=== PATIENT | female | born 1950 | race Caucasian/White ===

== ENCOUNTER 2018-04-06 22:06 | Observation (INO) ==
[2018-04-06] MEDS ORDERED: Albuterol 2.5 MG/3 ML NEBULIZER IH ONE ×2 (22:13→23:20)
[2018-04-06] MEDS ORDERED: Ipratropium/Albuterol Neb 3 ML IH ONE (22:13)
--- NOTE | 2018-04-06 22:26 | Emergency Department Note ---
Disposition Clinical Impression: Acute exacerbation of chronic obstructive airways disease, Acute hyponatremia Disposition: Admitted As Inpatient Condition: Fair Referrals: James Ashby CNP [Primary Care Provider] - Forms: ED Satisfaction Letter Time of Disposition: 23:33 SOB HPI - General Chief Complaint: ED Shortness of Breath/Dyspnea Stated Complaint: sob Time Seen by Provider: 04/06/18 22:12 Source: patient, EMS Mode of arrival: EMS Limitations: no limitations Nursing Notes Reviewed: Yes Vital Signs Reviewed: Yes - History of Present Illness 67-year-old female who presents today with known history of COPD on amoxicillin from her primary care physician. She is also taking Mucinex. She states she stopped her inhaler a few days ago because she was not clear if she could take her inhaler and the amoxicillin at the same time. She did not call her. Primary care to ask this question. Patient states that she does not wear oxygen at home. She arrives by EMS and is 89% on room air. By EMS she received 1 DuoNeb and Solu-Medrol. She states after the Solu-Medrol and DuoNeb she is feeling somewhat better. She had a nonproductive cough though she says she has been trying hard to cough it out. She states she has felt warm at home. - Related Data Home Medications Medication Instructions Recorded Confirmed Amlodipine [Norvasc] 5 mg PO DAILY 01/08/15 04/06/18 Aspirin 81 mg PO DAILY 01/08/15 04/06/18 Buspirone [Buspar] 15 mg PO TID 01/08/15 04/06/18 Cholecalciferol (Vitamin D3) 2,000 unit PO DAILY 01/08/15 04/06/18 [Vitamin D] CloNIDine HCl 0.1 mg PO TID 01/08/15 04/06/18 Cyanocobalamin (B-12) [Vitamin B12] 1,000 mcg IM PRN PRN 01/08/15 04/06/18 Denosumab [Prolia] 60 mg SQ [id number] 01/08/15 04/06/18 Ezetimibe [Zetia] 10 mg PO DAILY 01/08/15 04/06/18 LORazepam [Ativan] 0.5 mg PO TID 01/08/15 04/06/18 Loratadine [Claritin] 10 mg PO DAILY 01/08/15 04/06/18 Metoprolol [Lopressor] 50 mg PO BID 01/08/15 04/06/18 Mirtazapine [Remeron] 15 mg PO DAILY 01/08/15 04/06/18 Nitroglycerin 0.4 mg SL Q5MIN 01/08/15 04/06/18 Omeprazole [PriLOSEC] 20 mg PO DAILY 01/08/15 04/06/18 Simvastatin [Zocor] 0.5 tab PO HS 01/08/15 04/06/18 Albuterol Sulfate [Proair Hfa] 2 puff IH Q4H PRN 04/06/18 04/06/18 Amoxicillin [Amoxil] 500 mg PO TID 04/06/18 04/06/18 Guaifenesin [Mucinex] 600 mg PO BID 04/06/18 04/06/18 Levothyroxine [Synthroid] 50 mcg PO 0630 04/06/18 04/06/18 Allergies Allergy/AdvReac Type Severity Reaction Status Date / Time Benzoate Analogues Allergy See Verified 04/06/18 22:28 Comments chondroitin sulfate A Allergy See Verified 04/06/18 22:28 [From TripleFlex] Comments Diphenoxylate Allergy See Verified 04/06/18 22:28 Comments glatiramer (copolymer 1) Allergy See Verified 04/06/18 22:28 [From Copaxone] Comments glucosamine [From TripleFlex] Allergy See Verified 04/06/18 22:28 Comments levofloxacin Allergy See Verified 04/06/18 22:28 Comments methylsulfonylmethane Allergy See Verified 04/06/18 22:28 [From TripleFlex] Comments metronidazole Allergy See Verified 04/06/18 22:28 Comments nitrofurantoin Allergy See Verified 04/06/18 22:28 Comments ondansetron Allergy See Verified 04/06/18 22:28 Comments paricalcitol [From Zemplar] Allergy See Verified 04/06/18 22:28 Comments Sulfa (Sulfonamide Allergy Nausea Verified 04/06/18 22:28 Antibiotics) trazodone Allergy See Verified 04/06/18 22:28 Comments cinacalcet [From Sensipar] AdvReac See Verified 04/06/18 22:29 Comments codeine AdvReac Nausea Verified 04/06/18 22:28 NSAIDS (Non-Steroidal AdvReac Gastrointestinal Verified 04/06/18 22:28 Anti-Inflamma Upset Review of Systems: All other systems are negative except as noted/marked Chart generated with voice recognition software Nursing notes reviewed Old records reviewed Past Medical History - Past Medical History Attestation: Yes The following information was validated with the patient. Source: patient, old records reviewed, nursing notes reviewed Medical history: Reports: COPD, GERD, hyperlipidemia, hypertension, osteoporosis, renal disease, thyroid disease, other Surgical history: Reports: hysterectomy, other Psychiatric history: Reports: anxiety, depression BIT GATHERER history: Reports: no BIT GATHERER history - Social History Smoking Status: Current every day smoker Smokeless Tobacco Status: No Alcohol use: Reports: none Drug use: Reports: none Physical Exam - General Limitations: no limitations General appearance: alert - Head Head exam: atraumatic, normocephalic, normal inspection - Eye Eye exam: Present: normal appearance, PERRL, EOMI - ENT ENT exam: normal exam, normal oropharynx, mucous membranes moist, normal external ear exam - Neck Neck exam: Present: normal inspection, full ROM, trachea midline - Chest Chest inspection: Present: normal inspection, symmetric chest wall rise - Respiratory Respiratory exam: Present: wheezes, other (Diminished lung sounds bilaterally with exhalation wheezes) - Cardiovascular Cardiovascular exam: Present: regular rate, normal rhythm, normal heart sounds - Abdominal Exam Abdominal exam: Present: soft, Non-Tender, normal bowel sounds - Extremities Exam Extremities exam: Present: normal inspection, full ROM, normal capillary refill. Absent: tenderness, pedal edema, joint swelling, calf tenderness - Back Exam Back exam: Present: normal inspection, full ROM. Absent: tenderness - Neurological Exam Neurological exam: Present: alert, oriented X3, CN II-XII intact - Psychiatric Psychiatric exam: Present: normal affect, normal mood - Skin Skin exam: Present: warm, dry, intact, normal color. Absent: cyanosis, diaphoresis Course Vital Signs Temperature 98.6 F 04/06/18 22:17 Pulse Rate 85 04/06/18 22:17 Respiratory Rate 16 04/06/18 22:17 Blood Pressure 100/65 04/06/18 22:17 O2 Sat by Pulse Oximetry 90 04/06/18 22:17 Temperature 98.6 F 04/06/18 22:17 Pulse Rate 93 04/06/18 23:24 Respiratory Rate 16 04/06/18 23:24 Blood Pressure 119/61 04/06/18 23:24 O2 Sat by Pulse Oximetry 90 04/06/18 23:24 Oxygen Delivery Oxygen Delivery Nasal Cannula Shortness of Breath/Dyspnea - MDM Narrative Medical decision making narrative: 67-year-old female who presents today acute exacerbation of COPD. She has not been using her inhaler for days. Her ABG does not look terrible she looks slightly hypoxic. She was placed on oxygen when she got here because her room air sats were 89% and she does not wear oxygen at home. After the DuoNeb from EMS a DuoNeb from us and an albuterol from us, she is satting anywhere from 89- 92% on 2 L. She is at 92% at rest 89% when she is talking. I am not happy with that are satisfied that she can come off oxygen and go home much to her dismay. I ordered HER-2 more albuterol's here. I also noticed in her labwork that she is hyponatremic today at 123. This is low even for her. Her average sodium is around 128-132. Started some IV fluids for her for gentle replacement of the sodium. Patient understands that her best interest to stay. I have placed a call to the hospitalist for admission 1120pm Dr Kaplan called back, agrees to accept patient. Orders placed by myself. [id number] - Medical Records Medical records reviewed: Yes I reviewed the patient's medical records. - Lab Data Lab results reviewed: Yes I reviewed the patient's lab results. Result diagrams: 04/06/18 22:35 04/06/18 22:35 Lab Results 04/06/18 04/06/18 04/06/18 Range/Units 22:35 22:35 22:35 WBC 8.7 (4.3-11.1) K/mcL RBC 4.24 (3.82-4.97) M/mcL Hgb 13.7 (11.5-15.4) g/dL Hct 38.6 (35.3-44.9) % MCV 91.0 (83.0-100.0) fL MCH 32.3 (28.0-33.3) pg MCHC 35.5 (31.6-35.5) g/dL RDW 14.5 (11.5-14.5) % Plt Count 236 (140-400) K/mcL MPV 8.8 L (9.4-12.4) fL Immature Gran % 0.7 (0-4) % Seg Neutrophils % 54.3 % Lymphocytes % 34.8 % Monocytes % 7.4 % Eosinophils % 2.1 % Basophils % 0.7 % Neutrophils # 4.7 (1.6-8.9) K/mcL Lymphocytes # 3.0 (0.6-4.6) K/mcL Monocytes # 0.7 (0.0-1.3) K/mcL Eosinophils # 0.2 (0.0-0.6) K/mcL Basophils # 0.1 (0.0-0.2) K/mcL ABG pH (7.32-7.45) pH Units ABG pCO2 (35-45) mmHg ABG pO2 (85-104) mmHg ABG HCO3 (21-27) mEq/L ABG Total CO2 (20-26) mEq/L ABG O2 Saturation (95-98) % ABG Base Excess (-2 to 3) mEq/L Sodium 123 L (136-145) mEq/L Potassium 4.6 (3.5-5.1) mEq/L Chloride 93 L (98-107) mEq/L Carbon Dioxide 22 L (23-29) mEq/L BUN 17 (8-23) mg/dL Creatinine 1.27 H (0.60-1.20) mg/dL Est GFR ( Amer) 51 L (> 60) Est GFR (Non-Af Amer) 42 L (> 60) BUN/Creatinine Ratio 13 (6-26) Glucose 132 H (70-105) mg/dL Calculated Osmolality 259 L (280-300) Lactic Acid 1.3 (0.5-2.2) mmol/L Calcium 9.4 (8.6-10.3) mg/dL Magnesium (1.6-2.6) mg/dL 04/06/18 04/06/18 Range/Units 22:35 23:07 WBC (4.3-11.1) K/mcL RBC (3.82-4.97) M/mcL Hgb (11.5-15.4) g/dL Hct (35.3-44.9) % MCV (83.0-100.0) fL MCH (28.0-33.3) pg MCHC (31.6-35.5) g/dL RDW (11.5-14.5) % Plt Count (140-400) K/mcL MPV (9.4-12.4) fL Immature Gran % (0-4) % Seg Neutrophils % % Lymphocytes % % Monocytes % % Eosinophils % % Basophils % % Neutrophils # (1.6-8.9) K/mcL Lymphocytes # (0.6-4.6) K/mcL Monocytes # (0.0-1.3) K/mcL Eosinophils # (0.0-0.6) K/mcL Basophils # (0.0-0.2) K/mcL ABG pH 7.42 (7.32-7.45) pH Units ABG pCO2 39 (35-45) mmHg ABG pO2 69 L (85-104) mmHg ABG HCO3 25 (21-27) mEq/L ABG Total CO2 26 (20-26) mEq/L ABG O2 Saturation 94 L (95-98) % ABG Base Excess 1 (-2 to 3) mEq/L Sodium (136-145) mEq/L Potassium (3.5-5.1) mEq/L Chloride (98-107) mEq/L Carbon Dioxide (23-29) mEq/L BUN (8-23) mg/dL Creatinine (0.60-1.20) mg/dL Est GFR ( Amer) (> 60) Est GFR (Non-Af Amer) (> 60) BUN/Creatinine Ratio (6-26) Glucose (70-105) mg/dL Calculated Osmolality (280-300) Lactic Acid (0.5-2.2) mmol/L Calcium (8.6-10.3) mg/dL Magnesium 1.7 (1.6-2.6) mg/dL - Radiology Data Radiology results reviewed: Yes I reviewed the patient's radiology results. EXAMINATION: SINGLE XRAY VIEW OF THE CHEST 04/06/2018 10:42 pm COMPARISON: 08/27/2015 HISTORY: ORDERING SYSTEM PROVIDED HISTORY: dyspnea FINDINGS: Cardiac and mediastinal contours are unchanged. No new pulmonary opacities. Lungs are hyperinflated, with prominence of interstitial lung markings. No convincing evidence of significant pleural effusions. No evidence of pneumothorax. No evidence of acute osseous abnormalities. XR/XR chest 1V portable IMPRESSION: 1. No radiographic evidence of acute cardiopulmonary process. 2. Findings suggestive of COPD. 3. Unchanged bibasilar pulmonary opacities are most compatible with scarring. This can be further evaluated with nonemergent chest CT as an outpatient, as clinically warranted and if not previously evaluated. D/ / 04/06/2018 22:56:53 Daniel Hogan MD / [facility] Interpreting Provider: Daniel Hogan MD - EKG Data EKG attestation: Yes I reviewed and interpreted this EKG. EKG results narrative: EKG interpreted by myself as a sinus rhythm at a rate of 89 [address] QTC [address] elevation
[2018-04-06 22:47] LABS: Basophils # 0.1 K/mcL (0.0-0.2); Basophils % 0.7 %; Eosinophils # 0.2 K/mcL (0.0-0.6); Eosinophils % 2.1 %; Hematocrit 38.6 % (35.3-44.9); Hemoglobin 13.7 g/dL (11.5-15.4); Immature Granulocytes % 0.7 % (0-4); Lymphocytes % 34.8 %; Mean Corpuscular HGB Conc 35.5 g/dL (31.6-35.5); Mean Corpuscular Hemoglobin 32.3 pg (28.0-33.3); Mean Platelet Volume 8.8 fL (9.4-12.4); Monocytes # 0.7 K/mcL (0.0-1.3); Monocytes % 7.4 %; Neutrophils # 4.7 K/mcL (1.6-8.9); Platelet Count 236 K/mcL (140-400); Red Blood Count 4.24 M/mcL (3.82-4.97); Red Cell Distribution Width 14.5 % (11.5-14.5); Segmented Neutrophils % 54.3 %
[2018-04-06 23:04] LABS: Calcium 9.4 mg/dL (8.6-10.3); Potassium 4.6 mEq/L (3.5-5.1)
[2018-04-06] MEDS ORDERED: 0.9 % Sodium Chloride 1,000 ML IVC ONE (23:08)
[2018-04-06 23:10] LABS: ABG Base Excess 1 mEq/L (-2 to 3); ABG HCO3 25 mEq/L (21-27); ABG Oxygen Saturation 94 % (95-98); ABG PCO2 39 mmHg (35-45); ABG PH 7.42 pH Units (7.32-7.45); ABG PO2 69 mmHg (85-104); ABG TCO2 26 mEq/L (20-26)
[2018-04-06] MEDS ORDERED: Azithromycin 250 MG TABLET PO ONE (23:25)
[2018-04-06] MEDS ORDERED: cefTRIAXone 1,000 MG in Water for inj. (sterile) 20 ML 10 ML IVP ONE (23:25)
[2018-04-07] MEDS ORDERED: Acetaminophen 325 MG TABLET PO PRN (01:00)
[2018-04-07] MEDS ORDERED: Ipratropium/Albuterol Neb 3 ML IH PRN (01:00)
[2018-04-07] MEDS ORDERED: Naloxone 0.4 MG/ML INJ IVP PRN (01:00)
[2018-04-07] MEDS ORDERED: *HR* HYDROcodone/Acet 5/325 mg TABLET PO PRN (01:00)
[2018-04-07] MEDS: Nitroglycerin 0.4 MG TAB.SUBL SL SCH (02:00)
[2018-04-07] MEDS: 0.9 % Sodium Chloride 1,000 ML IVC SCH ×2 (02:03→12:41)
[2018-04-07] MEDS: Albuterol 2.5 MG/3 ML NEBULIZER IH SCH ×6 (05:11→23:52)
[2018-04-07 05:51] LABS: Basophils % 0.2 %; Hematocrit 35.6 % (35.3-44.9); Hemoglobin 12.4 g/dL (11.5-15.4); Immature Granulocytes % 0.9 % (0-4); Lymphocytes # 0.9 K/mcL (0.6-4.6); Lymphocytes % 9.6 %; Mean Corpuscular HGB Conc 34.8 g/dL (31.6-35.5); Mean Corpuscular Hemoglobin 32.3 pg (28.0-33.3); Mean Corpuscular Volume 92.7 fL (83.0-100.0); Mean Platelet Volume 8.5 fL (9.4-12.4); Monocytes # 0.1 K/mcL (0.0-1.3); Monocytes % 0.9 %; Neutrophils # 8.5 K/mcL (1.6-8.9); Platelet Count 217 K/mcL (140-400); Red Blood Count 3.84 M/mcL (3.82-4.97); Red Cell Distribution Width 14.4 % (11.5-14.5); Segmented Neutrophils % 88.4 %
[2018-04-07] MEDS: ZETIA 10MG PO SCH (08:37)
[2018-04-07] MEDS: Mirtazapine 15 MG TABLET PO SCH (08:43)
[2018-04-07 08:44] LABS: Potassium 3.4 mEq/L (3.5-5.1)
[2018-04-07] MEDS: Loratadine 10 MG TABLET PO SCH (08:44)
[2018-04-07] MEDS: *HR* LORazepam 1 MG TABLET PO SCH ×3 (08:44→21:01)
[2018-04-07] MEDS: Aspirin 81 MG TAB.CHEW PO SCH (08:44)
[2018-04-07] MEDS: cloNIDine HCl 0.1 MG TABLET PO SCH ×3 (08:44→21:03)
[2018-04-07] MEDS: amLODIPine 5 MG TABLET PO SCH (08:44)
--- NOTE | 2018-04-07 10:55 | Internal Med History&Physical ---
Date of Encounter: 04/07/18 Time of Encounter: 11:00 Internal Medicine - H&P: HPI Admitted From: Home History of present illness: Ms. Gutierrez is a 67 year old female who complained of SOB ASSESSMENTS AND PLANS (1) acute exacrbation of COPD hypoxia and wheeze in ED now on 2 L NC some medicine noncompliance discussed steroid - solumedrol in ED will change to po prednisone linda carrillo (2) anxiety perhaps made worse by steroid and low sodium will continue home medications and monitor (3) hyponatremia acute on chronic will give IV normal saline recheck lytes may need oral fluid restrict if not improving. may have element of adrenal insuffiency - could be followed also by family doc can check urine electrolytes if not improving. CC: SOB - History of Present Illness 67-year-old female who was admit via ED with acute exacerbation of COPD . She has known history of COPD and did see her PMD> She was placed on amoxicillin from her primary care physician. She at that time did stop her albuterol thinking not to take together. She started to wheeze and have increased sob at rest. IN ED she was found to have sat of 88% on room air. She is not on home O2. She did improve to 92% on 2 L after treatment in ED. She was also found to have low sodium, she has hx of chronic hyponatremia but this was worse at 123. She denies excessive water intake. Scant sputum dry cough. Does smoke at home 14 small cigars per day. Advised to stop Eating is fair. No chest or abd pain does have hx anxiety attacks. - Related Data Home Medications Medication Instructions Recorded Confirmed Amlodipine [Norvasc] 5 mg PO DAILY 01/08/15 04/06/18 Aspirin 81 mg PO DAILY 01/08/15 04/06/18 Buspirone [Buspar] 15 mg PO TID 01/08/15 04/06/18 Cholecalciferol (Vitamin D3) 2,000 unit PO DAILY 01/08/15 04/06/18 [Vitamin D] CloNIDine HCl 0.1 mg PO TID 01/08/15 04/06/18 Cyanocobalamin (B-12) [Vitamin B12] 1,000 mcg IM PRN PRN 01/08/15 04/06/18 Denosumab [Prolia] 60 mg SQ [id number] 01/08/15 04/06/18 Ezetimibe [Zetia] 10 mg PO DAILY 01/08/15 04/06/18 LORazepam [Ativan] 0.5 mg PO TID 01/08/15 04/06/18 Loratadine [Claritin] 10 mg PO DAILY 01/08/15 04/06/18 Metoprolol [Lopressor] 50 mg PO BID 01/08/15 04/06/18 Mirtazapine [Remeron] 15 mg PO DAILY 01/08/15 04/06/18 Nitroglycerin 0.4 mg SL Q5MIN 01/08/15 04/06/18 Omeprazole [PriLOSEC] 20 mg PO DAILY 01/08/15 04/06/18 Simvastatin [Zocor] 0.5 tab PO HS 01/08/15 04/06/18 Albuterol Sulfate [Proair Hfa] 2 puff IH Q4H PRN 04/06/18 04/06/18 Amoxicillin [Amoxil] 500 mg PO TID 04/06/18 04/06/18 Guaifenesin [Mucinex] 600 mg PO BID 04/06/18 04/06/18 Levothyroxine [Synthroid] 50 mcg PO 0630 04/06/18 04/06/18 Allergies Allergy/AdvReac Type Severity Reaction Status Date / Time Benzoate Analogues Allergy See Verified 04/06/18 22:28 Comments chondroitin sulfate A Allergy See Verified 04/06/18 22:28 [From TripleFlex] Comments Diphenoxylate Allergy See Verified 04/06/18 22:28 Comments glatiramer (copolymer 1) Allergy See Verified 04/06/18 22:28 [From Copaxone] Comments glucosamine [From TripleFlex] Allergy See Verified 04/06/18 22:28 Comments levofloxacin Allergy See Verified 04/06/18 22:28 Comments methylsulfonylmethane Allergy See Verified 04/06/18 22:28 [From TripleFlex] Comments metronidazole Allergy See Verified 04/06/18 22:28 Comments nitrofurantoin Allergy See Verified 04/06/18 22:28 Comments ondansetron Allergy See Verified 04/06/18 22:28 Comments paricalcitol [From Zemplar] Allergy See Verified 04/06/18 22:28 Comments Sulfa (Sulfonamide Allergy Nausea Verified 04/06/18 22:28 Antibiotics) trazodone Allergy See Verified 04/06/18 22:28 Comments cinacalcet [From Sensipar] AdvReac See Verified 04/06/18 22:29 Comments codeine AdvReac Nausea Verified 04/06/18 22:28 NSAIDS (Non-Steroidal AdvReac Gastrointestinal Verified 04/06/18 22:28 Anti-Inflamma Upset Review of Systems: All other systems are negative except as noted/marked Past Medical History - Past Medical History Medical history: Reports: COPD, GERD, hyperlipidemia, hypertension, osteoporosis Surgical history: Reports: hysterectomy, other Psychiatric history: Reports: anxiety, depression - Social History Smoking Status: Current every day smoker - cigarello Smokeless Tobacco Status: No Alcohol use: Reports: none Drug use: Reports: none Physical Exam - General Limitations: no limitations General appearance: alert WF slightly obese - Head Head exam: atraumatic, normocephalic, - Eye Eye exam: Present: normal appearance, PERRL, EOMI - ENT ENT exam: normal exam, normal oropharynx, mucous membranes moist, normal external ear exam - Neck Neck exam: Present: normal inspection, full ROM, trachea midline thick neck - Chest Chest inspection: Present: normal inspection, symmetric chest wall rise - Respiratory Respiratory exam: Present: wheezes, other (Diminished lung sounds bilaterally with exhalation wheezes) - Cardiovascular Cardiovascular exam: Present: regular rate, normal rhythm, normal heart sounds - Abdominal Exam Abdominal exam: Present: soft, Non-Tender, normal bowel sounds - Extremities Exam Extremities exam: Present: normal inspection, full ROM, normal capillary refill. Absent: tenderness, pedal edema, joint swelling, calf tenderness - Back Exam Back exam: Present: normal inspection, full ROM. Absent: tenderness - Neurological Exam Neurological exam: Present: alert, oriented X3, CN II-XII intact - Psychiatric Psychiatric exam: Present: normal affect, normal mood - Skin Skin exam: Present: warm, dry, intact, normal color. Absent: cyanosis, diaphoresis Past Med Surg Social Fam HX - Past Medical History Medical history: COPD, GERD, hyperlipidemia, hypertension, osteoporosis, renal disease, thyroid disease, other Additional medical history: MS Psychiatric history: anxiety, depression - Past Surgical History Surgical History: hysterectomy, other Additional surgical history: throat surgery - Social History Smoking Status: Current every day smoker Smokeless Tobacco Status: No Alcohol use: none Drug use: none - Family History Mother Hx Family Cancer: Yes (- Breast CA) Father Hx Family Cancer: Yes (Skin CA) Internal Medicine - H&P: Meds Amlodipine [Norvasc] 5 mg PO DAILY 01/08/15 [History] Aspirin 81 mg PO DAILY 01/08/15 [History] Buspirone [Buspar] 15 mg PO TID 01/08/15 [History] Cholecalciferol (Vitamin D3) [Vitamin D] 2,000 unit PO DAILY 01/08/15 [History] CloNIDine HCl 0.1 mg PO TID 01/08/15 [History] Cyanocobalamin (B-12) [Vitamin B12] 1,000 mcg IM PRN PRN 01/08/15 [History] Denosumab [Prolia] 60 mg SQ [id number] 01/08/15 [History] Ezetimibe [Zetia] 10 mg PO DAILY 01/08/15 [History] LORazepam [Ativan] 0.5 mg PO TID 01/08/15 [History] Loratadine [Claritin] 10 mg PO DAILY 01/08/15 [History] Metoprolol [Lopressor] 50 mg PO BID 01/08/15 [History] Mirtazapine [Remeron] 15 mg PO DAILY 01/08/15 [History] Nitroglycerin 0.4 mg SL Q5MIN 01/08/15 [History] Omeprazole [PriLOSEC] 20 mg PO DAILY 01/08/15 [History] Simvastatin [Zocor] 0.5 tab PO HS 01/08/15 [History] Albuterol Sulfate [Proair Hfa] 2 puff IH Q4H PRN 04/06/18 [History] Amoxicillin [Amoxil] 500 mg PO TID 04/06/18 [History] Guaifenesin [Mucinex] 600 mg PO BID 04/06/18 [History] Levothyroxine [Synthroid] 50 mcg PO 0630 04/06/18 [History] Allergy/AdvReac Type Severity Reaction Status Date / Time Benzoate Analogues Allergy See Verified 04/06/18 22:28 Comments chondroitin sulfate A Allergy See Verified 04/06/18 22:28 [From TripleFlex] Comments Diphenoxylate Allergy See Verified 04/06/18 22:28 Comments glatiramer (copolymer 1) Allergy See Verified 04/06/18 22:28 [From Copaxone] Comments glucosamine [From TripleFlex] Allergy See Verified 04/06/18 22:28 Comments levofloxacin Allergy See Verified 04/06/18 22:28 Comments methylsulfonylmethane Allergy See Verified 04/06/18 22:28 [From TripleFlex] Comments metronidazole Allergy See Verified 04/06/18 22:28 Comments nitrofurantoin Allergy See Verified 04/06/18 22:28 Comments ondansetron Allergy See Verified 04/06/18 22:28 Comments paricalcitol [From Zemplar] Allergy See Verified 04/06/18 22:28 Comments Sulfa (Sulfonamide Allergy Nausea Verified 04/06/18 22:28 Antibiotics) trazodone Allergy See Verified 04/06/18 22:28 Comments cinacalcet [From Sensipar] AdvReac See Verified 04/06/18 22:29 Comments codeine AdvReac Nausea Verified 04/06/18 22:28 NSAIDS (Non-Steroidal AdvReac Gastrointestinal Verified 04/06/18 22:28 Anti-Inflamma Upset All Systems PM: A 10-system review of systems was performed and is negative for pertinent findings except as documented above in the HPI. - Constitutional Vitals: Temp Pulse Resp BP Pulse Ox 99.3 F 110 18 118/64 94 04/07/18 07:49 04/07/18 07:49 04/07/18 07:49 04/07/18 07:49 04/07/18 07:49 Internal Med - H&P Results - Labs CBC & Chem 7: 04/07/18 05:45 04/07/18 05:45 Labs: Short CBC 04/06/18 04/07/18 Range/Units 22:35 05:45 WBC 8.7 9.6 (4.3-11.1) K/mcL Hgb 13.7 12.4 (11.5-15.4) g/dL Hct 38.6 35.6 (35.3-44.9) % Plt Count 236 217 (140-400) K/mcL Neutrophils # 4.7 8.5 (1.6-8.9) K/mcL BMP 04/06/18 04/07/18 22:35 05:45 Sodium 123 L 124 L Potassium 4.6 3.4 L D Chloride 93 L 94 L Carbon Dioxide 22 L 18 L BUN 17 17 Creatinine 1.27 H 1.39 H Glucose 132 H 324 H Calcium 9.4 9.0 - ABG Interpretation ABG results: 04/06/18 23:07 ABG pH 7.42 ABG pCO2 39 ABG pO2 69 L ABG HCO3 25 ABG Total CO2 26 ABG O2 Saturation 94 L ABG Base Excess 1 - Impressions ITS Impressions Chest X-Ray 04/06/18 22:13 IMPRESSION: 1. No radiographic evidence of acute cardiopulmonary process. 2. Findings suggestive of COPD. 3. Unchanged bibasilar pulmonary opacities are most compatible with scarring. This can be further evaluated with nonemergent chest CT as an outpatient, as clinically warranted and if not previously evaluated. D/ / 04/06/2018 22:56:53 Daniel Hogan MD / [facility] Interpreting Provider: Daniel Hogan MD
[2018-04-07 14:14] LABS: Calcium 9.4 mg/dL (8.6-10.3); Potassium 4.2 mEq/L (3.5-5.1)
[2018-04-08] MEDS: Nitroglycerin 0.4 MG TAB.SUBL SL SCH (00:04)
[2018-04-08] MEDS: Albuterol 2.5 MG/3 ML NEBULIZER IH SCH ×3 (03:57→12:13)
[2018-04-08 05:31] LABS: BUN/Creatinine Ratio 13 (6-26); Blood Urea Nitrogen 14 mg/dL (8-23); Calcium 9.7 mg/dL (8.6-10.3); Carbon Dioxide 23 mEq/L (23-29); Chloride 101 mEq/L (98-107); Glucose 168 mg/dL (70-105); Osmolality,Calculated 274 (280-300); Potassium 4.5 mEq/L (3.5-5.1); Sodium 130 mEq/L (136-145); eGFR For Non-African Americans 52 (> 60)
[2018-04-08] MEDS: *HR* Enoxaparin 40 MG/0.4 ML SYRINGE SQ SCH (05:43)
[2018-04-08] MEDS: Loratadine 10 MG TABLET PO SCH (07:48)
[2018-04-08] MEDS: Aspirin 81 MG TAB.CHEW PO SCH (07:48)
[2018-04-08] MEDS: amLODIPine 5 MG TABLET PO SCH (07:48)
[2018-04-08] MEDS: Nicotine 21 MG PATCH.TD24 TD SCH (07:48)
[2018-04-08] MEDS: Mirtazapine 15 MG TABLET PO SCH (07:48)
[2018-04-08] MEDS: cloNIDine HCl 0.1 MG TABLET PO SCH ×3 (07:48→20:50)
[2018-04-08] MEDS: *HR* LORazepam 1 MG TABLET PO SCH ×3 (07:49→20:51)
[2018-04-08] MEDS: ZETIA 10MG PO SCH (07:52)
--- NOTE | 2018-04-08 14:52 | Internal Med Progress Note ---
Date of Encounter: 04/08/18 Time of Encounter: 14:50 - Assessment and plan (1) Acute exacerbation of chronic obstructive airways disease Current Visit: Yes Status: Acute Assessment and plan: We will give high-dose IV steroids and continue Rocephin, follow. Hopefully, home tomorrow. (2) Acute hyponatremia Current Visit: Yes Status: Acute Assessment and plan: This is improved and we will follow. I do not feel she needs IV fluids, any longer. (3) Right leg swelling Current Visit: Yes Status: Acute Assessment and plan: This is stable and is to undergo outpatient duplex, on April 26. We may want to get this earlier, depending on her presentation. Will follow. - Subjective Interval history: Patient is not really feeling much better. Per RESTAURANT ATTENDANT, she has not received steroids or antibiotics for about 36 hours. She is doing somewhat better with nebulized treatments. Patient has no complaint of chest discomfort, dyspnea, orthopnea, palpitations, nausea or vomiting, constipation or diarrhea, other changes in bowel habits, difficulty with urination, rash or itching, or other new complaints, except as mentioned above. Review of systems is otherwise negative. I discussed management of her care with nursing staff. - Constitutional Vitals: Temp Pulse Resp BP Pulse Ox 98.6 F 96 16 167/89 93 04/08/18 11:29 04/08/18 11:29 04/08/18 11:29 04/08/18 11:29 04/08/18 11:29 Exam: Examination: (Except as mentioned above): General: In no apparent distress. Alert and oriented 3. Nondiaphoretic. Head: Atraumatic and normocephalic. Respiratory: No use of accessory muscles. Lungs have diffuse sonorous rhonchi with minimal wheezes throughout. Normal airflow or nearly so. Cardiovascular: Regular rate and rhythm without murmur appreciated. Abdomen: Bowel sounds are normal. No hepatosplenomegaly mass or tenderness appreciated. Obese and therefore difficult to palpate deeply. Extremities: No cyanosis clubbing or edema. Skin: Warm and non-diaphoretic with no new lesions noted. Internal Medicine: Result - Labs CBC & Chem 7: 04/07/18 05:45 04/08/18 05:01 Labs: BMP 04/08/18 05:01 Sodium 130 L Potassium 4.5 Chloride 101 Carbon Dioxide 23 BUN 14 Creatinine 1.05 Glucose 168 H Calcium 9.7 - ABG Interpretation ABG results: ABG ABG pH 7.42 pH Units (7.32-7.45) 04/06/18 23:07 ABG pCO2 39 mmHg (35-45) 04/06/18 23:07 ABG pO2 69 mmHg (85-104) L 04/06/18 23:07 ABG O2 Saturation 94 % (95-98) L 04/06/18 23:07 - Impressions Impressions Chest X-Ray 04/06/18 22:13 IMPRESSION: 1. No radiographic evidence of acute cardiopulmonary process. 2. Findings suggestive of COPD. 3. Unchanged bibasilar pulmonary opacities are most compatible with scarring. This can be further evaluated with nonemergent chest CT as an outpatient, as clinically warranted and if not previously evaluated. D/ / 04/06/2018 22:56:53 Daniel Hogan MD / [facility] Interpreting Provider: Daniel Hogan MD Consult Discharge Plan - Plan Referrals: James Ashby, RESTAUR[facility] ATTENDANT [Primary Care Provider] -
[2018-04-08] MEDS: Ipratropium/Albuterol Neb 3 ML IH SCH ×2 (15:42→23:24)
[2018-04-08] MEDS: methylPREDNISolone 125 MG/2 ML VIAL IVP SCH ×2 (16:55→23:24)
[2018-04-09] MEDS: Nitroglycerin 0.4 MG TAB.SUBL SL SCH (03:58)
[2018-04-09] MEDS: Ipratropium/Albuterol Neb 3 ML IH SCH ×3 (04:26→15:05)
[2018-04-09] MEDS: *HR* Enoxaparin 40 MG/0.4 ML SYRINGE SQ SCH (04:59)
[2018-04-09] MEDS: methylPREDNISolone 125 MG/2 ML VIAL IVP SCH ×2 (04:59→13:46)
[2018-04-09 07:00] LABS: BUN/Creatinine Ratio 15 (6-26); Blood Urea Nitrogen 16 mg/dL (8-23); Calcium 9.6 mg/dL (8.6-10.3); Carbon Dioxide 20 mEq/L (23-29); Chloride 97 mEq/L (98-107); Glucose 232 mg/dL (70-105); Osmolality,Calculated 273 (280-300); Potassium 4.8 mEq/L (3.5-5.1); Sodium 127 mEq/L (136-145); eGFR For Non-African Americans 50 (> 60)
[2018-04-09 07:27] VITALS: BP 147/92
[2018-04-09] MEDS: *HR* LORazepam 1 MG TABLET PO SCH ×2 (07:46→13:46)
[2018-04-09] MEDS: Nicotine 21 MG PATCH.TD24 TD SCH (07:47)
[2018-04-09] MEDS: Aspirin 81 MG TAB.CHEW PO SCH (07:47)
[2018-04-09] MEDS: cloNIDine HCl 0.1 MG TABLET PO SCH ×2 (07:47→13:46)
[2018-04-09] MEDS: amLODIPine 5 MG TABLET PO SCH (07:47)
[2018-04-09] MEDS: ZETIA 10MG PO SCH (07:47)
[2018-04-09] MEDS: Loratadine 10 MG TABLET PO SCH (07:47)
[2018-04-09] MEDS: Mirtazapine 15 MG TABLET PO SCH (07:47)
[2018-04-09] MEDS ORDERED: cefTRIAXone 1,000 MG in Water for inj. (sterile) 20 ML 10 ML IVP SCH (09:00)
--- NOTE | 2018-04-09 14:41 | Discharge Summary ---
Addendum entered and electronically signed by Pablo Howard MD 04/10/18 11:24: The patient was evaluated by me yesterday but the note was not complete. This documentation is being completed today for that reason. Discussed care with other providers and/or nursing. Patient has no complaint of chest discomfort, dyspnea, orthopnea, palpitations, nausea or vomiting, constipation or diarrhea, other changes in bowel habits, difficulty with urination, rash or itching, or other new complaints, except as mentioned above. Review of systems is otherwise negative. Examination: (Except as mentioned above): General: In no apparent distress. Alert and oriented 3. Nondiaphoretic. Head: Atraumatic and normocephalic. Respiratory: No use of accessory muscles. Lungs are clear throughout, except a rare sonorous rhonchi, no wheeze. Normal airflow. Cardiovascular: Regular rate and rhythm without murmur appreciated. Abdomen: Bowel sounds are normal. No hepatosplenomegaly mass or tenderness appreciated. Obese and therefore difficult to palpate deeply. Extremities: No cyanosis clubbing or edema. No cord or calf tenderness. Skin: Warm and non-diaphoretic with no new lesions noted. Patient is back to baseline, feeling well, and seems to have no respiratory dysfunction. Her cough is a little more than usual and she expresses willingness to quit smoking. She is wanting nicotine patch, for same. This will be prescribed as well as a steroid burst and antibiotics for a week. Original Note: Orders not resulted at time of discharge: Pending orders 04/06/18 23:02 Culture,Blood [BC] Stat 04/10/18 04:00 BMP [Basic Metabolic Panel] AM 0400 04/11/18 04:00 BMP [Basic Metabolic Panel] AM 0400 04/12/18 04:00 BMP [Basic Metabolic Panel] AM 0400 Date of Encounter: 04/09/18 Time of Encounter: 14:35 - Discharge Diagnosis (1) Acute exacerbation of chronic obstructive airways disease Priority: Primary Status: Acute (2) Hyponatremia Priority: Secondary Status: Acute Hospital course: Ms. Gutierrez is a 67 year old female charging to home. Will continue omnicef 300 mg twice a day for 7 days. Will continue prednisone 20 mg daily for 5 days and nicotine patch 21 mg daily. Follow up with primary care in one week. Patient states shortness of breath is improving. Still has productive cough at times. Denies fever, chills, nausea vomiting or diarrhea. Denies chest pain. Oxygen saturation remaining 92% on room air. Discharge discussed with: patient, nurse - Time Spent with Patient Total time spent providing and/or coordinating discharge services: Less than 30 minutes - Discharge Medications Home Medications: Amlodipine [Norvasc] 5 mg PO DAILY 01/08/15 [History] Aspirin 81 mg PO DAILY 01/08/15 [History] Buspirone [Buspar] 15 mg PO TID 01/08/15 [History] Cholecalciferol (Vitamin D3) [Vitamin D3] 2,000 unit PO DAILY 01/08/15 [History] CloNIDine HCl 0.1 mg PO TID 01/08/15 [History] Cyanocobalamin (B-12) [Vitamin B12] 1,000 mcg IM PRN PRN 01/08/15 [History] Denosumab [Prolia (For Outpatient Infusion)] 60 mg SQ [id number] 01/08/15 [History] Ezetimibe [Zetia] 10 mg PO DAILY 01/08/15 [History] LORazepam [Ativan] 0.5 mg PO TID 01/08/15 [History] Loratadine [Claritin] 10 mg PO DAILY 01/08/15 [History] Metoprolol [Lopressor] 50 mg PO BID 01/08/15 [History] Mirtazapine [Remeron] 15 mg PO DAILY 01/08/15 [History] Nitroglycerin 0.4 mg SL Q5MIN 01/08/15 [History] Omeprazole [PriLOSEC] 20 mg PO DAILY 01/08/15 [History] Simvastatin [Zocor] 0.5 tab PO HS 01/08/15 [History] Albuterol Sulfate [Proair Hfa] 2 puff IH Q4H PRN 04/06/18 [History] Guaifenesin [Mucinex] 600 mg PO BID 04/06/18 [History] Levothyroxine [Synthroid] 50 mcg PO 0630 04/06/18 [History] Acetaminophen [Tylenol] 650 mg PO Q6HR PRN tablet 04/09/18 [Rx] Nicotine Patch [Nicoderm] 21 mg TD DAILY #14 patch.td24 04/09/18 [Rx] Allergies/Adverse Reactions: Allergy/AdvReac Type Severity Reaction Status Date / Time Benzoate Analogues Allergy See Verified 04/06/18 22:28 Comments chondroitin sulfate A Allergy See Verified 04/06/18 22:28 [From TripleFlex] Comments Diphenoxylate Allergy See Verified 04/06/18 22:28 Comments glatiramer (copolymer 1) Allergy See Verified 04/06/18 22:28 [From Copaxone] Comments glucosamine [From TripleFlex] Allergy See Verified 04/06/18 22:28 Comments levofloxacin Allergy See Verified 04/06/18 22:28 Comments methylsulfonylmethane Allergy See Verified 04/06/18 22:28 [From TripleFlex] Comments metronidazole Allergy See Verified 04/06/18 22:28 Comments nitrofurantoin Allergy See Verified 04/06/18 22:28 Comments ondansetron Allergy See Verified 04/06/18 22:28 Comments paricalcitol [From Zemplar] Allergy See Verified 04/06/18 22:28 Comments Sulfa (Sulfonamide Allergy Nausea Verified 04/06/18 22:28 Antibiotics) trazodone Allergy See Verified 04/06/18 22:28 Comments cinacalcet [From Sensipar] AdvReac See Verified 04/06/18 22:29 Comments codeine AdvReac Nausea Verified 04/06/18 22:28 NSAIDS (Non-Steroidal AdvReac Gastrointestinal Verified 04/06/18 22:28 Anti-Inflamma Upset Date of admission: 04/06/18 23:38 Primary care physician: James Ashby CNP Consults: 04/09/18 10:37 Consult to Occupational Therapy [CONS] Stat Comment: Evaluate, develop and implement POC Reason for Consult: weakness Does patient have active BEDREST order?: No Is patient medically & hemodynamically stable?: Yes Consult to Physical Therapy [CONS] Stat Comment: Evaluate, develop and implement POC Reason for Consult: weakness Does patient have active BEDREST order?: No Is patient medically & hemodynamically stable?: Yes Discharging clinician: Pablo Howard Anticipated date of discharge: 04/09/18 - Constitutional Vitals: Temp Pulse Resp BP Pulse Ox 98.3 F 100 17 147/92 92 04/09/18 07:26 04/09/18 11:12 04/09/18 11:12 04/09/18 07:26 04/09/18 14:23 General appearance: Present: cooperative, A&O X 3, pleasant, no acute distress, obese - Head Head exam: Present: atraumatic, normocephalic - Eye Eye exam: Present: PERRL, conjuntiva pink, sclera anicteric Pupils: Present: PERRL - Neck Neck exam general surgery: Present: supple, trachea midline. Absent: lymphadenopathy - Respiratory Respiratory exam: Present: CTAB. Absent: accessory muscle use, rales, rhonchi, wheezes - Cardiovascular Cardiovascular exam: Present: RRR, +S1, +S2. Absent: diastolic murmur, gallop, rubs, systolic murmur - GI/Abdominal GI/Abdominal exam: Present: normal bowel sounds, soft, no peritoneal signs. Absent: distended, tenderness - Extremities Exam Extremities exam: Present: warm, radial pulses palpable and symmetrical. Absent: calf tenderness, cyanotic, pedal edema - Neurological Exam Neurological exam: Present: CN II-XII intact, oriented X3, no focal deficits. Absent: pronater drift, facial droop, speech deficit - Skin Skin exam: Present: dry, intact - Patient Status Disposition: Home, Self-Care Condition: Fair Functional capacity at discharge: uses cane/walker Overall status at discharge: patient is progressing back to baseline - Discharge Instructions Follow Up With: James Ashby WEIGHBRIDGE OPERATOR [Primary Care Provider] - - Diet and Activity Activity: increase activity as tolerated Diet: advance to your usual diet
--- NOTE | 2018-04-09 17:54 | Electrocardiograph Report ---
[address] [place], [place] [address] Test Date: 2018-04-06 Pat Name: Lynn Gutierrez Department: 2000 Room: 113 Gender: Mental Health Director: : 1950 Requested By: Deborah Benson Order Number: [id number] Reading MD: Khloe Beavers Measurements Intervals [place] Rate: 89 P: 18 AL: 164 QRS: 29 QRSD: 90 T: 25 QT: 341 QTc: 388 Interpretive Statements SINUS RHYTHM ARTIFACT Electronically Signed On 04-09-2018 17:52:39 EST by Khloe Beavers
== END 2018-04-09 18:03 | disposition home or self-care (01) ==
LOC: INPGRE 22:06 → EMEROOGRE 22:06 → INPGRE 04-07 00:45
PROVIDERS: ADMIT Internal Medicine; ATTEND Internal Medicine

== ENCOUNTER 2018-04-09 22:16 | Observation (INO) ==
--- NOTE | 2018-04-09 22:24 | Emergency Department Note ---
Disposition Clinical Impression: Acute exacerbation of chronic obstructive airways disease, Hypoxia Disposition: Admitted As Inpatient Condition: Fair General Adult HPI - General Stated complaint: Breathing problems Time Seen by Provider: 04/09/18 22:16 Source: patient Mode of arrival: EMS Limitations: no limitations Nursing Notes Reviewed: Yes Vital Signs Reviewed: Yes - History of Present Illness HPI Narrative: Patient was discharged from the hospital here today at 7 PM and then about 2 hours ago she started having trouble breathing again and called the squad and was transported back here. She was in the hospital for similar complaint and admitted on Monday. She denies any chest pain fevers or chills she does complain of shortness of breath. No belly pain diarrhea rashes or other complaints or admitted to Onset (ago): hour(s) (2) Location: chest Pain Scale: 0 Consistency: intermittent Improves with: nothing Worsens with: nothing Associated symptoms: Reports: shortness of breath - Related Data Home Medications Medication Instructions Recorded Confirmed Amlodipine [Norvasc] 5 mg PO DAILY 01/08/15 04/09/18 Aspirin 81 mg PO DAILY 01/08/15 04/09/18 Buspirone [Buspar] 15 mg PO TID 01/08/15 04/09/18 Cholecalciferol (Vitamin D3) 1,000 unit PO DAILY 01/08/15 04/09/18 [Vitamin D3] CloNIDine HCl 0.1 mg PO TID 01/08/15 04/09/18 Cyanocobalamin (B-12) [Vitamin B12] 1,000 mcg IM PRN PRN 01/08/15 04/09/18 Denosumab [Prolia (For Outpatient 60 mg SQ [id number] 01/08/15 04/09/18 Infusion)] Ezetimibe [Zetia] 10 mg PO DAILY 01/08/15 04/09/18 LORazepam [Ativan] 0.5 mg PO TID 01/08/15 04/09/18 Loratadine [Claritin] 10 mg PO DAILY 01/08/15 04/09/18 Metoprolol [Lopressor] 50 mg PO BID 01/08/15 04/09/18 Mirtazapine [Remeron] 15 mg PO DAILY 01/08/15 04/09/18 Nitroglycerin 0.4 mg SL Q5MIN 01/08/15 04/09/18 Omeprazole [PriLOSEC] 20 mg PO DAILY 01/08/15 04/09/18 Simvastatin [Zocor] 0.5 tab PO HS 01/08/15 04/09/18 Albuterol Sulfate [Proair Hfa] 2 puff IH Q4H PRN 04/06/18 04/09/18 Guaifenesin [Mucinex] 600 mg PO BID 04/06/18 04/09/18 Levothyroxine [Synthroid] 50 mcg PO 0630 04/06/18 04/09/18 Lisinopril [Zestril] 2.5 mg PO DAILY 04/09/18 04/09/18 [place]-3/Dha/Epa/Fish Oil [Fish Oil 1 each PO BID 04/09/18 04/09/18 1,000 mg Softgel] Previous Rx's Medication Instructions Recorded Acetaminophen [Tylenol] 650 mg PO Q6HR PRN tablet 04/09/18 Nicotine Patch [Nicoderm] 21 mg TD DAILY #14 patch.td24 04/09/18 Allergies Allergy/AdvReac Type Severity Reaction Status Date / Time Benzoate Analogues Allergy See Verified 04/06/18 22:28 Comments chondroitin sulfate A Allergy See Verified 04/06/18 22:28 [From TripleFlex] Comments Diphenoxylate Allergy See Verified 04/06/18 22:28 Comments glatiramer (copolymer 1) Allergy See Verified 04/06/18 22:28 [From Copaxone] Comments glucosamine [From TripleFlex] Allergy See Verified 04/06/18 22:28 Comments levofloxacin Allergy See Verified 04/06/18 22:28 Comments methylsulfonylmethane Allergy See Verified 04/06/18 22:28 [From TripleFlex] Comments metronidazole Allergy See Verified 04/06/18 22:28 Comments nitrofurantoin Allergy See Verified 04/06/18 22:28 Comments ondansetron Allergy See Verified 04/06/18 22:28 Comments paricalcitol [From Zemplar] Allergy See Verified 04/06/18 22:28 Comments Sulfa (Sulfonamide Allergy Nausea Verified 04/06/18 22:28 Antibiotics) trazodone Allergy See Verified 04/06/18 22:28 Comments cinacalcet [From Sensipar] AdvReac See Verified 04/06/18 22:29 Comments codeine AdvReac Nausea Verified 04/06/18 22:28 NSAIDS (Non-Steroidal AdvReac Gastrointestinal Verified 04/06/18 22:28 Anti-Inflamma Upset All systems ED: reviewed and negative except as stated. Review of Systems: As Per HPI Constitutional: Denies: fever, chills, weakness, weight change Eyes: Denies: eye pain, eye discharge, vision change ENT ED: Denies: ear pain, throat pain, dental pain, hearing loss, epistaxis, congestion, dysphagia Cardiovascular: Denies: chest pain, palpitations, dyspnea on exertion, edema, syncope Respiratory: Reports: as per HPI, dyspnea. Denies: cough, wheezes, hemoptysis, stridor Gastrointestinal: Denies: abdominal pain, nausea, vomiting, diarrhea, constipation, hematemesis, melena, hematochezia Genitourinary: Denies: dysuria, frequency, hematuria, discharge Musculoskeletal: Denies: back pain, neck pain, arthralgia, myalgia Integumentary: Denies: rash, abrasion, lesions Neurological: Denies: headache, weakness, numbness, paresthesias, confusion, abnormal gait, vertigo Psychiatric: Denies: anxiety, depression, suicidal thoughts, homicidal thoughts, auditory hallucinations, visual hallucinations Endocrine: Denies: fatigue Hematological/Lymphatic: Denies: easy bleeding, easy bruising Allergic/Immunologic: Denies: facial swelling, urticaria Past Medical History - Past Medical History Attestation: Yes The following information was validated with the patient. 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 history - Social History Smoking Status: Current every day smoker Smokeless Tobacco Status: No Alcohol use: Reports: none Drug use: Reports: none Physical Exam - General Limitations: no limitations General appearance: alert, in no apparent distress - Head Head exam: atraumatic, normocephalic, normal inspection - Eye Eye exam: Present: normal appearance, PERRL, EOMI - ENT ENT exam: normal exam, normal oropharynx, mucous membranes moist - Neck Neck exam: Present: normal inspection, full ROM, trachea midline - Respiratory Respiratory exam: Present: prolonged expiratory phase, other (shallow respirations). Absent: respiratory distress, wheezes, accessory muscle use - Cardiovascular Cardiovascular exam: Present: normal rhythm, tachycardia - Abdominal Exam Abdominal exam: Present: soft, Non-Tender, normal bowel sounds - Back Exam Back exam: Present: normal inspection - Neurological Exam Neurological exam: Present: alert, oriented X3 - Psychiatric Psychiatric exam: Present: normal affect, normal mood - Skin Skin exam: Present: warm, dry, intact Course Vital Signs Temperature 99.2 F 04/09/18 22:20 Pulse Rate 134 04/09/18 22:20 Respiratory Rate 18 04/09/18 22:20 Blood Pressure 126/83 04/09/18 22:20 O2 Sat by Pulse Oximetry 92 04/09/18 22:20 Temperature 97.9 F 04/10/18 07:15 Pulse Rate 118 04/10/18 07:15 Respiratory Rate 19 04/10/18 07:29 Blood Pressure 147/89 04/10/18 07:15 O2 Sat by Pulse Oximetry 90 04/10/18 07:29 Oxygen Delivery Oxygen Delivery Nasal Cannula Medical Decision Making - MDM Narrative Medical decision making narrative: I reviewed the patient's medication list Discussed case with Dr. Howard who agrees with admission - Lab Data Lab results reviewed: Yes I reviewed the patient's lab results. Result diagrams: 04/09/18 23:00 04/09/18 23:00 Lab Results 04/09/18 04/09/18 Range/Units 23:00 23:00 WBC 15.9 H D (4.3-11.1) K/mcL RBC 4.47 (3.82-4.97) M/mcL Hgb 14.5 D (11.5-15.4) g/dL Hct 41.0 (35.3-44.9) % MCV 91.7 (83.0-100.0) fL MCH 32.4 (28.0-33.3) pg MCHC 35.4 (31.6-35.5) g/dL RDW 14.4 (11.5-14.5) % Plt Count 336 D (140-400) K/mcL MPV 8.6 L (9.4-12.4) fL Immature Gran % 1.5 (0-4) % Seg Neutrophils % 86.3 % Lymphocytes % 8.0 % Monocytes % 4.1 % Eosinophils % 0.0 % Basophils % 0.1 % Neutrophils # 13.7 H (1.6-8.9) K/mcL Lymphocytes # 1.3 (0.6-4.6) K/mcL Monocytes # 0.7 (0.0-1.3) K/mcL Eosinophils # 0.0 (0.0-0.6) K/mcL Basophils # 0.0 (0.0-0.2) K/mcL Sodium 126 L (136-145) mEq/L Potassium 3.7 (3.5-5.1) mEq/L Chloride 92 L (98-107) mEq/L Carbon Dioxide 23 (23-29) mEq/L BUN 26 H (8-23) mg/dL Creatinine 1.45 H (0.60-1.20) mg/dL Est GFR ( Amer) 43 L (> 60) Est GFR (Non-Af Amer) 36 L (> 60) BUN/Creatinine Ratio 18 (6-26) Glucose 266 H (70-105) mg/dL Calculated Osmolality 276 L (280-300) Calcium 10.2 (8.6-10.3) mg/dL Total Bilirubin 0.5 (0.3-1.0) mg/dL AST 26 (13-39) Units/L ALT 38 (7-52) Units/L Alkaline Phosphatase TNP Troponin I < 0.03 (< 0.04) ng/mL Serum Total Protein 6.7 (6.4-8.9) g/dL Albumin 4.1 (3.5-5.7) g/dL Globulin 2.6 (2.4-3.5) g/dL Albumin/Globulin Ratio 1.6 (1.1-2.2) - Radiology Data Radiology results reviewed: Yes I reviewed the patient's radiology results. - EKG Data EKG #1 EKG attestation: Yes I reviewed and interpreted this EKG. EKG results narrative: EKG shows ventricular rate of 133 bpm. SD interval of 141 ms. QRS duration 95 ms QT interval 310 QTC 388 ms. R axis of 33 degrees. other than sinus tachycardia this unremarkable cardiac exam
[2018-04-09 23:05] LABS: Basophils % 0.1 %; Immature Granulocytes % 1.5 % (0-4); Lymphocytes # 1.3 K/mcL (0.6-4.6); Mean Corpuscular HGB Conc 35.4 g/dL (31.6-35.5); Mean Corpuscular Hemoglobin 32.4 pg (28.0-33.3); Mean Corpuscular Volume 91.7 fL (83.0-100.0); Mean Platelet Volume 8.6 fL (9.4-12.4); Monocytes # 0.7 K/mcL (0.0-1.3); Monocytes % 4.1 %; Neutrophils # 13.7 K/mcL (1.6-8.9); Platelet Count 336 K/mcL (140-400); Red Blood Count 4.47 M/mcL (3.82-4.97); Red Cell Distribution Width 14.4 % (11.5-14.5); Segmented Neutrophils % 86.3 %
[2018-04-09 23:10] LABS: Hemoglobin 14.5 g/dL (11.5-15.4)
[2018-04-09 23:19] LABS: Troponin I < 0.03 ng/mL (< 0.04)
[2018-04-09 23:37] LABS: Sodium 126 mEq/L (136-145)
[2018-04-09 23:38] LABS: Alanine Aminotransferase 38 Units/L (7-52); Albumin 4.1 g/dL (3.5-5.7); Albumin/Globulin Ratio 1.6 (1.1-2.2); Aspartate Amino Transferase 26 Units/L (13-39); BUN/Creatinine Ratio 18 (6-26); Bilirubin,Total 0.5 mg/dL (0.3-1.0); Blood Urea Nitrogen 26 mg/dL (8-23); Calcium 10.2 mg/dL (8.6-10.3); Carbon Dioxide 23 mEq/L (23-29); Chloride 92 mEq/L (98-107); Globulin 2.6 g/dL (2.4-3.5); Glucose 266 mg/dL (70-105); Osmolality,Calculated 276 (280-300); Potassium 3.7 mEq/L (3.5-5.1); Total Protein 6.7 g/dL (6.4-8.9); eGFR For Non-African Americans 36 (> 60)
[2018-04-09] MEDS ORDERED: methylPREDNISolone 125 MG/2 ML VIAL IVP ONE (23:39)
[2018-04-10] MEDS ORDERED: Ipratropium/Albuterol Neb 3 ML IH SCH
[2018-04-10] MEDS ORDERED: NON-FORMULARY MEDICATION 1 EACH EACH (Cyanocobalamin (B-12) 1,000 MCG) IM PRN (00:52)
[2018-04-10] MEDS ORDERED: Naloxone 0.4 MG/ML INJ IVP PRN (00:52)
[2018-04-10] MEDS ORDERED: Nitroglycerin 0.4 MG TAB.SUBL SL SCH (00:52)
[2018-04-10] MEDS ORDERED: Acetaminophen 325 MG TABLET PO PRN (00:52)
[2018-04-10] MEDS ORDERED: Denosumab 60 MG/ML SYRINGE SQ SCH (00:52)
[2018-04-10] MEDS: Ipratropium/Albuterol Neb 3 ML IH SCH ×3 (05:00→10:29)
[2018-04-10] MEDS: *HR* LORazepam 1 MG TABLET PO SCH ×2 (08:30→14:38)
[2018-04-10] MEDS ORDERED: cloNIDine HCl 0.1 MG TABLET PO SCH (09:00)
[2018-04-10] MEDS ORDERED: ZETIA 10MG PO SCH (09:00)
[2018-04-10] MEDS ORDERED: Mirtazapine 15 MG TABLET PO SCH (09:00)
[2018-04-10] MEDS ORDERED: amLODIPine 5 MG TABLET PO SCH (09:00)
[2018-04-10] MEDS ORDERED: Loratadine 10 MG TABLET PO SCH (09:00)
[2018-04-10] MEDS ORDERED: Nicotine 21 MG PATCH.TD24 TD SCH (09:00)
[2018-04-10] MEDS ORDERED: Cholecalciferol (D-3) 1,000 UNIT TABLET PO SCH (09:00)
[2018-04-10] MEDS ORDERED: Aspirin 81 MG TAB.CHEW PO SCH (09:00)
[2018-04-10 09:32] LABS: Basophils % 0.2 %; Hematocrit 41.1 % (35.3-44.9); Hemoglobin 13.8 g/dL (11.5-15.4); Immature Granulocytes % 1.5 % (0-4); Lymphocytes # 1.2 K/mcL (0.6-4.6); Mean Corpuscular HGB Conc 33.6 g/dL (31.6-35.5); Mean Corpuscular Hemoglobin 31.6 pg (28.0-33.3); Mean Corpuscular Volume 94.1 fL (83.0-100.0); Mean Platelet Volume 9.1 fL (9.4-12.4); Monocytes # 0.4 K/mcL (0.0-1.3); Monocytes % 3.1 %; Neutrophils # 11.1 K/mcL (1.6-8.9); Platelet Count 291 K/mcL (140-400); Red Blood Count 4.37 M/mcL (3.82-4.97); Red Cell Distribution Width 14.5 % (11.5-14.5); Segmented Neutrophils % 86.2 %
[2018-04-10 10:24] LABS: Calcium 9.9 mg/dL (8.6-10.3); Potassium 3.9 mEq/L (3.5-5.1)
[2018-04-10 12:23] VITALS: BP 144/83
--- NOTE | 2018-04-10 12:23 | Internal Med History&Physical ---
Addendum entered and electronically signed by Pablo Howard MD 04/10/18 12:57: Please see my discharge summary addendum, this date. Original Note: Date of Encounter: 04/10/18 Time of Encounter: 12:20 Assessment and Plan (1) Acute exacerbation of chronic obstructive airways disease Current visit: Yes Status: Acute Stable. Continue oxygen 2 L per nasal cannula. Maintaining saturation greater than 90%. Internal Medicine - H&P: HPI Admitted From: Emergency Dept Plans for Post Hospital Care: Home History of present illness: Ms. Gutierrez is a 67 year old female was just discharge to home yesterday and returned back to the report emergency room approximately 4 hours later. Patient states she came back due to increased shortness of breath. States that she ambulated to the bathroom she felt hypoxic. She denies chest pain, fever, chills, nausea vomiting or diarrhea. Patient is discharged with antibiotic and prednisone. Does not wear oxygen at home. Past Med Surg Social Fam HX - Past Medical History Medical history: COPD, GERD, hyperlipidemia, hypertension, osteoporosis, renal disease, thyroid disease, other Additional medical history: MS Psychiatric history: anxiety, depression - Past Surgical History Surgical History: hysterectomy, other Additional surgical history: throat surgery, lumpectomy on R Breast - Social History Smoking Status: Current every day smoker Smokeless Tobacco Status: No Alcohol use: none Drug use: none - Family History Mother Hx Family Cancer: Yes (- Breast CA) Father Hx Family Cancer: Yes (Skin CA) Internal Medicine - H&P: Meds Amlodipine [Norvasc] 5 mg PO DAILY 01/08/15 [History] Aspirin 81 mg PO DAILY 01/08/15 [History] Buspirone [Buspar] 15 mg PO TID 01/08/15 [History] Cholecalciferol (Vitamin D3) [Vitamin D3] 1,000 unit PO DAILY 01/08/15 [History] CloNIDine HCl 0.1 mg PO TID 01/08/15 [History] Cyanocobalamin (B-12) [Vitamin B12] 1,000 mcg IM PRN PRN 01/08/15 [History] Denosumab [Prolia (For Outpatient Infusion)] 60 mg SQ [id number] 01/08/15 [ History] Ezetimibe [Zetia] 10 mg PO DAILY 01/08/15 [History] LORazepam [Ativan] 0.5 mg PO TID 01/08/15 [History] Loratadine [Claritin] 10 mg PO DAILY 01/08/15 [History] Metoprolol [Lopressor] 50 mg PO BID 01/08/15 [History] Mirtazapine [Remeron] 15 mg PO DAILY 01/08/15 [History] Nitroglycerin 0.4 mg SL Q5MIN 01/08/15 [History] Omeprazole [PriLOSEC] 20 mg PO DAILY 01/08/15 [History] Simvastatin [Zocor] 0.5 tab PO HS 01/08/15 [History] Albuterol Sulfate [Proair Hfa] 2 puff IH Q4H PRN 04/06/18 [History] Guaifenesin [Mucinex] 600 mg PO BID 04/06/18 [History] Levothyroxine [Synthroid] 50 mcg PO 0630 04/06/18 [History] Acetaminophen [Tylenol] 650 mg PO Q6HR PRN tablet 04/09/18 [Rx] Lisinopril [Zestril] 2.5 mg PO DAILY 04/09/18 [History] Nicotine Patch [Nicoderm] 21 mg TD DAILY #14 patch.td24 04/09/18 [Rx] [place]-3/Dha/Epa/Fish Oil [Fish Oil 1,000 mg Softgel] 1 each PO BID 04/09/18 [History] Allergy/AdvReac Type Severity Reaction Status Date / Time Benzoate Analogues Allergy See Verified 04/06/18 22:28 Comments chondroitin sulfate A Allergy See Verified 04/06/18 22:28 [From TripleFlex] Comments Diphenoxylate Allergy See Verified 04/06/18 22:28 Comments glatiramer (copolymer 1) Allergy See Verified 04/06/18 22:28 [From Copaxone] Comments glucosamine [From TripleFlex] Allergy See Verified 04/06/18 22:28 Comments levofloxacin Allergy See Verified 04/06/18 22:28 Comments methylsulfonylmethane Allergy See Verified 04/06/18 22:28 [From TripleFlex] Comments metronidazole Allergy See Verified 04/06/18 22:28 Comments nitrofurantoin Allergy See Verified 04/06/18 22:28 Comments ondansetron Allergy See Verified 04/06/18 22:28 Comments paricalcitol [From Zemplar] Allergy See Verified 04/06/18 22:28 Comments Sulfa (Sulfonamide Allergy Nausea Verified 04/06/18 22:28 Antibiotics) trazodone Allergy See Verified 04/06/18 22:28 Comments cinacalcet [From Sensipar] AdvReac See Verified 04/06/18 22:29 Comments codeine AdvReac Nausea Verified 04/06/18 22:28 NSAIDS (Non-Steroidal AdvReac Gastrointestinal Verified 04/06/18 22:28 Anti-Inflamma Upset All Systems PM: A 10-system review of systems was performed and is negative for pertinent findings except as documented above in the HPI. - Constitutional Constitutional: no chills, no fever(s), no night sweats - EENT Eyes: no change in vision, no discharge, no pain, no photophobia Ears: no ear discharge, no ear pain, no tinnitus Nose, mouth and throat: no dysphagia, no nasal discharge, no neck pain, no sore throat - Cardiovascular Cardiovascular ROS IM: no chest pain, no diaphoresis, no dyspnea, no lightheadedness, no palpitations, no syncope - Respiratory Respiratory: no cough, no dyspnea, no wheezing, no excessive phlegm production - Gastrointestinal Gastrointestinal: no abdominal pain, no diarrhea, no hematemesis, no hematochezia, no melena, no nausea, no vomiting - Genitourinary Genitourinary: no change in urinary stream, no dysuria, no flank pain, no hematuria - Musculoskeletal Musculoskeletal ROS IM: no numbness, no tingling - Integumentary Integumentary IM: no rash, no unusual bruising - Neurological Neurological ROS: no confusion, no convulsions, no focal weakness, no numbness, no tingling, no tremor(s) - Hematologic/Lymphatic Hematologic/Lymphatic: no easy bruising - Constitutional Vitals: Temp Pulse Resp BP Pulse Ox 97.9 F 118 19 147/89 92 04/10/18 07:15 04/10/18 07:15 04/10/18 10:30 04/10/18 07:15 04/10/18 10:30 General appearance: Present: cooperative, A&O X 3, pleasant, no acute distress, obese, answers questions appropriately - Head Head exam: Present: atraumatic, normocephalic - Eye Eye exam: Present: PERRL, conjuntiva pink, sclera anicteric Pupils: Present: PERRL - Neck Neck exam general surgery: Present: supple, trachea midline. Absent: lymphadenopathy - Respiratory Respiratory exam: Present: CTAB. Absent: accessory muscle use, rales, rhonchi, wheezes Additional comments: Diminished bilateral basis - Cardiovascular Cardiovascular exam: Present: RRR, +S1, +S2. Absent: diastolic murmur, gallop, rubs, systolic murmur - GI/Abdominal GI/Abdominal exam: Present: normal bowel sounds, soft, no peritoneal signs. Absent: distended, tenderness - Extremities Exam Extremities exam: Present: warm, radial pulses palpable and symmetrical. Absent: calf tenderness, cyanotic, pedal edema - Neurological Exam Neurological exam: Present: CN II-XII intact, oriented X3, no focal deficits. Absent: pronater drift, facial droop, speech deficit - Skin Skin exam: Present: dry, intact Internal Med - H&P Results - Labs CBC & Chem 7: 04/10/18 08:50 04/10/18 08:50 Labs: Short CBC 04/09/18 04/10/18 Range/Units 23:00 08:50 WBC 15.9 H D 12.9 H (4.3-11.1) K/mcL Hgb 14.5 D 13.8 (11.5-15.4) g/dL Hct 41.0 41.1 (35.3-44.9) % Plt Count 336 D 291 (140-400) K/mcL Neutrophils # 13.7 H 11.1 H (1.6-8.9) K/mcL BMP 04/09/18 04/10/18 23:00 08:50 Sodium 126 L 130 L Potassium 3.7 3.9 Chloride 92 L 95 L Carbon Dioxide 23 25 BUN 26 H 23 Creatinine 1.45 H 1.35 H Glucose 266 H 344 H Calcium 10.2 9.9 Cardiac Enzymes 04/09/18 Range/Units 23:00 Troponin I < 0.03 (< 0.04) ng/mL Liver Function 04/09/18 Range/Units 23:00 Total Bilirubin 0.5 (0.3-1.0) mg/dL AST 26 (13-39) Units/L ALT 38 (7-52) Units/L Alkaline Phosphatase TNP Albumin 4.1 (3.5-5.7) g/dL - Impressions ITS Impressions Chest X-Ray 04/09/18 22:23 IMPRESSION: Pulmonary hyperinflation correlates with history of COPD. Bronchial wall thickening may reflect smoking-related airway inflammation versus acute bronchitis. Streaky opacities are favored to reflect scarring/atelectasis at the left lung base. Pneumonia or aspiration less favored. D/ / Aleksandr Mata / Aleksandr Mata Interpreting Provider: Aleksandr Mata
--- NOTE | 2018-04-10 12:29 | Discharge Summary ---
Addendum entered and electronically signed by Pablo Howard MD 04/10/18 12:57: Patient is with shortness of breath which occurred when urinating, at home. This happened after 15 minute telephone conversation and caused her to return to the emergency room. Oxygenation was unremarkable but she was admitted for observation because of symptoms, again. The patient notes that she is still having an increase in cough versus her baseline but really not much production or no other changes. She feels that her dyspnea on exertion is worse and has not improved adequately, versus yesterday. However, she admits to no dyspnea at rest and feels that she is hypoxic, only, with exertion. Oxygenation is minimally diminished at rest and she does desaturate with exertion. I told the patient that I feel that this is anxiety, largely, and she was very resistant to this. I told her to follow with her primary care physician. Patient has no complaint of chest discomfort, dyspnea, orthopnea, breathing problems, palpitations, nausea or vomiting, constipation or diarrhea, other changes in bowel habits, heartburn, difficulty with urination, kidney problems or kidney stones, fevers chills or sweats, rash or itching, seizures, headache or lightheadedness, heat or cold intolerance, blood problems or anemia, or other new complaints, except as mentioned above. Review of systems is otherwise negative. Examination: (Except as mentioned above): General: In no apparent distress. Alert and oriented 3. Nondiaphoretic. Head: Atraumatic and normocephalic. Respiratory: No use of accessory muscles. Lungs are clear throughout. I hear no rales or rhonchi. Normal airflow. Cardiovascular: Regular rate and rhythm without murmur appreciated. Abdomen: Bowel sounds are normal. No hepatosplenomegaly mass or tenderness appreciated. Obese and therefore difficult to palpate deeply. Extremities: No cyanosis clubbing or edema. Skin: Warm and non-diaphoretic with no new lesions noted. Apparently, the patient continued to smoke at home and she has been reminded again that she must discontinue this. She will follow with primary care physician as planned. We will ask that she continue her burst of steroids and antibiotics, as per yesterday. Original Note: Orders not resulted at time of discharge: Pending orders 04/09/18 23:54 Culture,Blood [BC] Stat 04/11/18 04:00 BNP [B-Type Natriuretic Peptide] AM 0400 BNP [B-Type Natriuretic Peptide] AM 0400 Date of Encounter: 04/10/18 Time of Encounter: 12:27 - Discharge Diagnosis (1) Acute exacerbation of chronic obstructive airways disease Priority: Primary Status: Acute Comments: Discharge with antibiotics, prednisone, home oxygen at 2 L as needed. Instructed to follow up with PCP within one week. Hospital course: Ms. Gutierrez is a 67 year old female Discharge discussed with: patient, nurse Time spent discussing smoking cessation with patient: more than 10 minutes - Time Spent with Patient Total time spent providing and/or coordinating discharge services: Less than 30 minutes - Discharge Medications Home Medications: Amlodipine [Norvasc] 5 mg PO DAILY 01/08/15 [History] Aspirin 81 mg PO DAILY 01/08/15 [History] Buspirone [Buspar] 15 mg PO TID 01/08/15 [History] Cholecalciferol (Vitamin D3) [Vitamin D3] 1,000 unit PO DAILY 01/08/15 [History] CloNIDine HCl 0.1 mg PO TID 01/08/15 [History] Cyanocobalamin (B-12) [Vitamin B12] 1,000 mcg IM PRN PRN 01/08/15 [History] Denosumab [Prolia (For Outpatient Infusion)] 60 mg SQ [id number] 01/08/15 [History] Ezetimibe [Zetia] 10 mg PO DAILY 01/08/15 [History] LORazepam [Ativan] 0.5 mg PO TID 01/08/15 [History] Loratadine [Claritin] 10 mg PO DAILY 01/08/15 [History] Metoprolol [Lopressor] 50 mg PO BID 01/08/15 [History] Mirtazapine [Remeron] 15 mg PO DAILY 01/08/15 [History] Nitroglycerin 0.4 mg SL Q5MIN 01/08/15 [History] Omeprazole [PriLOSEC] 20 mg PO DAILY 01/08/15 [History] Simvastatin [Zocor] 0.5 tab PO HS 01/08/15 [History] Albuterol Sulfate [Proair Hfa] 2 puff IH Q4H PRN 04/06/18 [History] Guaifenesin [Mucinex] 600 mg PO BID 04/06/18 [History] Levothyroxine [Synthroid] 50 mcg PO 0630 04/06/18 [History] Acetaminophen [Tylenol] 650 mg PO Q6HR PRN tablet 04/09/18 [Rx] Lisinopril [Zestril] 2.5 mg PO DAILY 04/09/18 [History] Nicotine Patch [Nicoderm] 21 mg TD DAILY #14 patch.td24 04/09/18 [Rx] [place]-3/Dha/Epa/Fish Oil [Fish Oil 1,000 mg Softgel] 1 each PO BID 04/09/18 [History] Allergies/Adverse Reactions: Allergy/AdvReac Type Severity Reaction Status Date / Time Benzoate Analogues Allergy See Verified 04/06/18 22:28 Comments chondroitin sulfate A Allergy See Verified 04/06/18 22:28 [From TripleFlex] Comments Diphenoxylate Allergy See Verified 04/06/18 22:28 Comments glatiramer (copolymer 1) Allergy See Verified 04/06/18 22:28 [From Copaxone] Comments glucosamine [From TripleFlex] Allergy See Verified 04/06/18 22:28 Comments levofloxacin Allergy See Verified 04/06/18 22:28 Comments methylsulfonylmethane Allergy See Verified 04/06/18 22:28 [From TripleFlex] Comments metronidazole Allergy See Verified 04/06/18 22:28 Comments nitrofurantoin Allergy See Verified 04/06/18 22:28 Comments ondansetron Allergy See Verified 04/06/18 22:28 Comments paricalcitol [From Zemplar] Allergy See Verified 04/06/18 22:28 Comments Sulfa (Sulfonamide Allergy Nausea Verified 04/06/18 22:28 Antibiotics) trazodone Allergy See Verified 04/06/18 22:28 Comments cinacalcet [From Sensipar] AdvReac See Verified 04/06/18 22:29 Comments codeine AdvReac Nausea Verified 04/06/18 22:28 NSAIDS (Non-Steroidal AdvReac Gastrointestinal Verified 04/06/18 22:28 Anti-Inflamma Upset Date of admission: 04/10/18 00:12 Primary care physician: James Ashby, [employer] Discharging clinician: Pablo Howard Anticipated date of discharge: 04/10/18 - Constitutional Vitals: see exam on today's H&P. Temp Pulse Resp BP Pulse Ox 97.6 F 93 16 144/83 96 04/10/18 12:00 04/10/18 12:00 04/10/18 12:00 04/10/18 12:00 04/10/18 12:00 General appearance: Present: cooperative, A&O X 3, pleasant, no acute distress, obese, answers questions appropriately - Patient Status Disposition: Home, Self-Care Condition: Good Functional capacity at discharge: uses cane/walker Overall status at discharge: patient is progressing back to baseline - Discharge Instructions Forms: ED Satisfaction Letter - Diet and Activity Activity: increase activity as tolerated Diet: advance to your usual diet
--- NOTE | 2018-04-10 13:18 | Physician Discharge Referral ---
Home Health/Hosp Referral Info Transfer to: Home Health Provider in Charge Post Discharge: PCP - Diagnosis (1) Acute exacerbation of chronic obstructive airways disease Priority: Primary Status: Acute - Respiratory Orders Oxygen / L per min Smoking Cessation: Smoking cessation has been advised. For more information, call the [place] Tobacco Quit Line at 4-770-PLCK-NOW. - Diet/Nutrition Diet/Nutrition Orders: Regular - Activity Activity Orders: Ambulate, Walker - Services Needed Following services are medically necessary services: Nursing, Physical Therapy, Occupational Therapy - Transfer Medications Home Medications: Amlodipine [Norvasc] 5 mg PO DAILY 01/08/15 [History] Aspirin 81 mg PO DAILY 01/08/15 [History] Buspirone [Buspar] 15 mg PO TID 01/08/15 [History] Cholecalciferol (Vitamin D3) [Vitamin D3] 1,000 unit PO DAILY 01/08/15 [History] CloNIDine HCl 0.1 mg PO TID 01/08/15 [History] Cyanocobalamin (B-12) [Vitamin B12] 1,000 mcg IM PRN PRN 01/08/15 [History] Denosumab [Prolia (For Outpatient Infusion)] 60 mg SQ [id number] 01/08/15 [History] Ezetimibe [Zetia] 10 mg PO DAILY 01/08/15 [History] LORazepam [Ativan] 0.5 mg PO TID 01/08/15 [History] Loratadine [Claritin] 10 mg PO DAILY 01/08/15 [History] Metoprolol [Lopressor] 50 mg PO BID 01/08/15 [History] Mirtazapine [Remeron] 15 mg PO DAILY 01/08/15 [History] Nitroglycerin 0.4 mg SL Q5MIN 01/08/15 [History] Omeprazole [PriLOSEC] 20 mg PO DAILY 01/08/15 [History] Simvastatin [Zocor] 0.5 tab PO HS 01/08/15 [History] Albuterol Sulfate [Proair Hfa] 2 puff IH Q4H PRN 04/06/18 [History] Guaifenesin [Mucinex] 600 mg PO BID 04/06/18 [History] Levothyroxine [Synthroid] 50 mcg PO 0630 04/06/18 [History] Acetaminophen [Tylenol] 650 mg PO Q6HR PRN tablet 04/09/18 [Rx] Lisinopril [Zestril] 2.5 mg PO DAILY 04/09/18 [History] Nicotine Patch [Nicoderm] 21 mg TD DAILY #14 patch.td24 04/09/18 [Rx] [place]-3/Dha/Epa/Fish Oil [Fish Oil 1,000 mg Softgel] 1 each PO BID 04/09/18 [History] Allergies/Adverse Reactions: Allergy/AdvReac Type Severity Reaction Status Date / Time Benzoate Analogues Allergy See Verified 04/06/18 22:28 Comments chondroitin sulfate A Allergy See Verified 04/06/18 22:28 [From TripleFlex] Comments Diphenoxylate Allergy See Verified 04/06/18 22:28 Comments glatiramer (copolymer 1) Allergy See Verified 04/06/18 22:28 [From Copaxone] Comments glucosamine [From TripleFlex] Allergy See Verified 04/06/18 22:28 Comments levofloxacin Allergy See Verified 04/06/18 22:28 Comments methylsulfonylmethane Allergy See Verified 04/06/18 22:28 [From TripleFlex] Comments metronidazole Allergy See Verified 04/06/18 22:28 Comments nitrofurantoin Allergy See Verified 04/06/18 22:28 Comments ondansetron Allergy See Verified 04/06/18 22:28 Comments paricalcitol [From Zemplar] Allergy See Verified 04/06/18 22:28 Comments Sulfa (Sulfonamide Allergy Nausea Verified 04/06/18 22:28 Antibiotics) trazodone Allergy See Verified 04/06/18 22:28 Comments cinacalcet [From Sensipar] AdvReac See Verified 04/06/18 22:29 Comments codeine AdvReac Nausea Verified 04/06/18 22:28 NSAIDS (Non-Steroidal AdvReac Gastrointestinal Verified 04/06/18 22:28 Anti-Inflamma Upset Certification: Further, I certify that my clinical findings support that this patient is homebound (i.e. absences from home require considerable and taxing effort and are for medical reasons or latter-day services or infrequently or short duration when for other reasons) because: Homebound Reason: Patient requires assistance of a person or device to safely leave home, Leaving home requires considerable and taxing effort due to condition Attestation: My signature below is to certify that this patient is under my care and that I, or nurse practitioner, or a physician's administrative sales assistant working with me, has a [id number] encounter with this patient.
--- NOTE | 2018-04-10 16:53 | Electrocardiograph Report ---
[address] [place], [place] [address] Test Date: 2018-04-09 Pat Name: Lynn Gutierrez Department: 2000 Room: 113 Gender: F Radio Repairer Domestic: JOSE : 1950 Requested By: Steve Call Order Number: [id number] Reading MD: Khloe Beavers Measurements Intervals Bostic Rate: 133 P: 49 WA: 141 QRS: 33 QRSD: 95 T: 32 QT: 310 QTc: 388 Interpretive Statements SINUS TACHYCARDIA Electronically Signed On 04-10-2018 16:52:00 EST by Khloe Beavers
[2018-04-10] MEDS ORDERED: cefTRIAXone 2,000 MG in Water for inj. (sterile) 20 ML 20 ML IVPB SCH ×2 (18:00)
== END 2018-04-10 15:45 | disposition home or self-care (01) ==
LOC: INPGRE 22:16 → EMEROOGRE 22:16 → INPGRE 04-10 00:40

== ENCOUNTER 2020-06-04 14:26 | Inpatient (IN) ==
[2020-06-04] MEDS ORDERED: 0.9 % Sodium Chloride 500 ML IVC ONE (14:57)
[2020-06-04 15:14] LABS: Basophils % 0.2 %; Eosinophils % 0.2 %; Hematocrit 35.3 % (35.3-44.9); Hemoglobin 11.9 g/dL (11.5-15.4); Immature Granulocytes % 1.2 % (0-4); Lymphocytes % 15.3 %; Mean Corpuscular HGB Conc 33.7 g/dL (31.6-35.5); Mean Corpuscular Volume 88.9 fL (83.0-100.0); Mean Platelet Volume 11.3 fL (9.4-12.4); Monocytes # 0.5 K/mcL (0.0-1.3); Platelet Count 155 K/mcL (140-400); Red Blood Count 3.97 M/mcL (3.82-4.97); Red Cell Distribution Width 15.2 % (11.5-14.5); Segmented Neutrophils % 75.1 %; White Blood Count 6.7 K/mcL (4.3-11.1)
[2020-06-04 15:16] LABS: INR 1.3; Prothrombin Time 14.9 Seconds (9.4-12.1)
[2020-06-04 15:19] LABS: Activated Partial Thrombo Time 29.1 Seconds (26.0-36.0)
[2020-06-04 15:23] LABS: Albumin 3.4 g/dL (3.5-5.7); Bilirubin,Total 0.6 mg/dL (0.3-1.0); Calcium 8.4 mg/dL (8.6-10.3); Globulin 3.3 g/dL (2.4-3.5); Magnesium 1.7 mg/dL (1.6-2.6); Potassium 3.9 mEq/L (3.5-5.1); Total Protein 6.7 g/dL (6.4-8.9)
[2020-06-04 15:41] LABS: Thyroid Stimulating Hormone 0.652 mcIU/mL (0.340-5.600)
[2020-06-04] MEDS ORDERED: Dexamethasone 4 MG/ML VIAL IVP ONE (15:50)
[2020-06-04] MEDS ORDERED: 0.9 % Sodium Chloride 1,000 ML IVC SCH ×2 (16:15→16:30)
[2020-06-04] MEDS ORDERED: Naloxone 0.4 MG/ML INJ IVP PRN (16:15)
[2020-06-04] MEDS ORDERED: Acetaminophen 325 MG TABLET PO PRN (16:15)
[2020-06-04] MEDS ORDERED: Gabapentin 300 MG CAPSULE PO PRN (16:22)
[2020-06-04] MEDS ORDERED: Nitroglycerin 0.4 MG TAB.SUBL SL PRN (16:22)
[2020-06-04] MEDS ORDERED: levoFLOXacin 750 MG/150 ML 750 MG/150 ML BAG IVPB SCH (19:00)
[2020-06-04] MEDS ORDERED: Ipratropium/Albuterol Neb 3 ML IH SCH (20:00)
[2020-06-04] MEDS: cloNIDine HCL 0.1 MG TABLET PO SCH (22:22)
[2020-06-04] MEDS: *HR* LORazepam 1 MG TABLET PO SCH (22:22)
[2020-06-04] MEDS: Mirtazapine 15 MG TABLET PO SCH (22:22)
[2020-06-04] MEDS: Patient Taking Own Medication 1 EACH PO SCH (22:25)
[2020-06-04] MEDS: cefTRIAXone 1,000 MG in Water for inj. (sterile) 10 ML IVP SCH (22:35)
[2020-06-05] MEDS: *HR* Enoxaparin 30 MG/0.3 ML SYRINGE SQ SCH (06:07)
[2020-06-05 06:16] LABS: Hematocrit 32.5 % (35.3-44.9); Hemoglobin 10.9 g/dL (11.5-15.4); Mean Corpuscular HGB Conc 33.5 g/dL (31.6-35.5); Mean Corpuscular Hemoglobin 30.2 pg (28.0-33.3); Mean Platelet Volume 9.3 fL (9.4-12.4); Platelet Count 203 K/mcL (140-400); Red Blood Count 3.61 M/mcL (3.82-4.97); Red Cell Distribution Width 15.2 % (11.5-14.5); White Blood Count 5.5 K/mcL (4.3-11.1)
[2020-06-05 06:39] LABS: Calcium 8.1 mg/dL (8.6-10.3); Magnesium 1.9 mg/dL (1.6-2.6); Potassium 4.2 mEq/L (3.5-5.1)
[2020-06-05] MEDS: *HR* LORazepam 1 MG TABLET PO SCH ×2 (09:02→22:05)
[2020-06-05] MEDS: lisinopriL 5 MG TABLET PO SCH (09:02)
[2020-06-05] MEDS: cloNIDine HCL 0.1 MG TABLET PO SCH ×3 (09:02→22:05)
[2020-06-05] MEDS: amLODIPine 5 MG TABLET PO SCH (09:02)
[2020-06-05] MEDS: Dexamethasone Sodium Phos/PF 10 MG/ML VIAL IVP SCH (09:03)
[2020-06-05] MEDS: Loratadine 10 MG TABLET PO SCH (09:03)
[2020-06-05] MEDS: Cholecalciferol (D-3) 1,000 UNIT (25MCG) TABLET PO SCH (09:03)
[2020-06-05] MEDS: Aspirin 81 MG TAB.CHEW PO SCH (09:03)
[2020-06-05] MEDS: cefTRIAXone 1,000 MG in Water for inj. (sterile) 10 ML IVP SCH (09:04)
[2020-06-05] MEDS: Mirtazapine 15 MG TABLET PO SCH (22:05)
[2020-06-05] MEDS: Nystatin POWDER 30 GM BOTTLE TP SCH (22:05)
[2020-06-05] MEDS: Patient Taking Own Medication 1 EACH PO SCH (22:05)
[2020-06-06] MEDS: *HR* Enoxaparin 30 MG/0.3 ML SYRINGE SQ SCH (05:11)
[2020-06-06] MEDS: cefTRIAXone 1,000 MG in Water for inj. (sterile) 10 ML IVP SCH (09:24)
[2020-06-06] MEDS: Aspirin 81 MG TAB.CHEW PO SCH (09:27)
[2020-06-06] MEDS: Cholecalciferol (D-3) 1,000 UNIT (25MCG) TABLET PO SCH (09:27)
[2020-06-06] MEDS: *HR* LORazepam 1 MG TABLET PO SCH ×2 (09:27→20:57)
[2020-06-06] MEDS: amLODIPine 5 MG TABLET PO SCH (09:27)
[2020-06-06] MEDS: lisinopriL 5 MG TABLET PO SCH (09:27)
[2020-06-06] MEDS: Nystatin POWDER 30 GM BOTTLE TP SCH ×3 (09:28→20:57)
[2020-06-06] MEDS: Loratadine 10 MG TABLET PO SCH (09:28)
[2020-06-06] MEDS: Dexamethasone Sodium Phos/PF 10 MG/ML VIAL IVP SCH (09:28)
[2020-06-06] MEDS: cloNIDine HCL 0.1 MG TABLET PO SCH ×3 (09:28→20:57)
[2020-06-06 11:22] LABS: Calcium 8.3 mg/dL (8.6-10.3); Potassium 5.2 mEq/L (3.5-5.1)
[2020-06-06] MEDS: Patient Taking Own Medication 1 EACH PO SCH (20:57)
[2020-06-06] MEDS: Mirtazapine 15 MG TABLET PO SCH (20:57)
[2020-06-07] MEDS: *HR* Enoxaparin 40 MG/0.4 ML SYRINGE SQ SCH (05:11)
[2020-06-07 05:52] LABS: Basophils % 0.2 %; Hemoglobin 10.7 g/dL (11.5-15.4); Immature Granulocytes % 3.2 % (0-4); Lymphocytes # 0.8 K/mcL (0.6-4.6); Lymphocytes % 11.9 %; Mean Corpuscular HGB Conc 32.4 g/dL (31.6-35.5); Mean Corpuscular Hemoglobin 29.6 pg (28.0-33.3); Mean Corpuscular Volume 91.2 fL (83.0-100.0); Mean Platelet Volume 9.2 fL (9.4-12.4); Monocytes # 0.5 K/mcL (0.0-1.3); Monocytes % 7.2 %; Neutrophils # 5.2 K/mcL (1.6-8.9); Platelet Count 286 K/mcL (140-400); Red Blood Count 3.62 M/mcL (3.82-4.97); Red Cell Distribution Width 14.8 % (11.5-14.5); Segmented Neutrophils % 77.5 %; White Blood Count 6.6 K/mcL (4.3-11.1)
[2020-06-07 06:11] LABS: Calcium 8.7 mg/dL (8.6-10.3); Potassium 4.9 mEq/L (3.5-5.1)
[2020-06-07] MEDS: Loratadine 10 MG TABLET PO SCH (09:51)
[2020-06-07] MEDS: Cholecalciferol (D-3) 1,000 UNIT (25MCG) TABLET PO SCH (09:51)
[2020-06-07] MEDS: cloNIDine HCL 0.1 MG TABLET PO SCH ×3 (09:51→20:47)
[2020-06-07] MEDS: lisinopriL 5 MG TABLET PO SCH (09:51)
[2020-06-07] MEDS: amLODIPine 5 MG TABLET PO SCH (09:52)
[2020-06-07] MEDS: Dexamethasone Sodium Phos/PF 10 MG/ML VIAL IVP SCH (09:52)
[2020-06-07] MEDS: *HR* LORazepam 1 MG TABLET PO SCH ×2 (09:52→20:47)
[2020-06-07] MEDS: Aspirin 81 MG TAB.CHEW PO SCH (09:52)
[2020-06-07] MEDS: Nystatin POWDER 30 GM BOTTLE TP SCH ×3 (09:53→20:48)
[2020-06-07] MEDS: cefTRIAXone 1,000 MG in Water for inj. (sterile) 10 ML IVP SCH (09:53)
[2020-06-07] MEDS: Mirtazapine 15 MG TABLET PO SCH (20:47)
[2020-06-07] MEDS: Patient Taking Own Medication 1 EACH PO SCH (20:48)
[2020-06-08] MEDS: *HR* Enoxaparin 40 MG/0.4 ML SYRINGE SQ SCH (04:23)
[2020-06-08] MEDS ORDERED: *HR* Dextrose 50 % in Water (Vial) 50 ML VIAL IVP PRN (08:57)
[2020-06-08] MEDS ORDERED: D5% in Water 1,000 ML IVC PRN (08:57)
[2020-06-08] MEDS ORDERED: Dextrose Gel 15 GM/37.5 ML TUBE PO PRN ×2 (08:57)
[2020-06-08] MEDS ORDERED: dexAMETHasone 4 MG TABLET PO SCH (09:00)
[2020-06-08] MEDS: Aspirin 81 MG TAB.CHEW PO SCH (09:26)
[2020-06-08] MEDS: Loratadine 10 MG TABLET PO SCH (09:26)
[2020-06-08] MEDS: *HR* LORazepam 1 MG TABLET PO SCH (09:27)
[2020-06-08] MEDS: Cholecalciferol (D-3) 1,000 UNIT (25MCG) TABLET PO SCH (09:27)
[2020-06-08] MEDS: amLODIPine 5 MG TABLET PO SCH (09:27)
[2020-06-08] MEDS: lisinopriL 5 MG TABLET PO SCH (09:27)
[2020-06-08] MEDS: cloNIDine HCL 0.1 MG TABLET PO SCH (09:27)
[2020-06-08 11:06] VITALS: BP 126/72
[2020-06-08] MEDS ORDERED: Insulin LISPRO 300 UNITS/3 ML VIAL SUBQ SCH ×2 (11:30→21:00)
== END 2020-06-08 14:23 | disposition hospice, home (50) | DRG 177 ==
LOC: EMEROOGRE 14:26 → INPGRE 14:26
PROVIDERS: ADMIT Family Medicine; ATTEND Family Medicine

== ENCOUNTER 2021-05-18 05:44 | Observation (INO) ==
[2021-05-18] MEDS ORDERED: methylPREDNISolone 125 MG/2 ML VIAL IM STA (06:27)
[2021-05-18] MEDS ORDERED: *HR* LORazepam 0.5 MG TABLET PO ONE (06:28)
[2021-05-18] MEDS ORDERED: methylPREDNISolone 125 MG/2 ML VIAL IVP ONE (06:33)
[2021-05-18 06:37] LABS: Basophils % 0.3 %; Eosinophils # 0.1 K/mcL (0.0-0.6); Eosinophils % 1.3 %; Hematocrit 45.4 % (35.3-44.9); Hemoglobin 14.2 g/dL (11.5-15.4); Immature Granulocytes % 0.5 % (0-4); Lymphocytes # 2.9 K/mcL (0.6-4.6); Lymphocytes % 33.1 %; Mean Corpuscular HGB Conc 31.3 g/dL (31.6-35.5); Mean Corpuscular Hemoglobin 28.3 pg (28.0-33.3); Mean Corpuscular Volume 90.4 fL (83.0-100.0); Mean Platelet Volume 10.5 fL (9.4-12.4); Monocytes # 0.7 K/mcL (0.0-1.3); Monocytes % 8.1 %; Neutrophils # 4.9 K/mcL (1.6-8.9); Platelet Count 191 K/mcL (140-400); Red Blood Count 5.02 M/mcL (3.82-4.97); Red Cell Distribution Width 14.9 % (11.5-14.5); Segmented Neutrophils % 56.7 %; White Blood Count 8.7 K/mcL (4.3-11.1)
[2021-05-18 06:50] LABS: Calcium 9.5 mg/dL (8.6-10.3); Potassium 3.6 mEq/L (3.5-5.1)
[2021-05-18] MEDS ORDERED: cefTRIAXone 1,000 MG in Water for inj. (sterile) 10 ML IVP ONE (06:50)
[2021-05-18] MEDS ORDERED: Azithromycin 500 MG in 0.9 % Sodium Chloride 250 ML IVPB ONE (06:50)
[2021-05-18 06:56] LABS: Troponin I 0.03 ng/mL (< 0.04)
[2021-05-18] MEDS ORDERED: 0.9 % Sodium Chloride 500 ML IVC ONE (06:57)
[2021-05-18] MEDS ORDERED: *HR* HYDROcodone/Acet 5/325 mg TABLET PO ONE (07:44)
[2021-05-18] MEDS ORDERED: *HR* OxyCODONE/APAP 5/325 TABLET PO ONE (09:16)
[2021-05-18] MEDS ORDERED: Mag Hydrox/Al Hydrox/Simeth 30 ML UDC PO PRN (12:12)
[2021-05-18] MEDS ORDERED: Ondansetron 4 MG/2 ML VIAL IVP PRN (12:12)
[2021-05-18] MEDS ORDERED: Acetaminophen 325 MG TABLET PO PRN (12:12)
[2021-05-18] MEDS ORDERED: Naloxone 0.4 MG/ML INJ IVP PRN (12:12)
[2021-05-18] MEDS ORDERED: MOM Conc 10 ML UD.LIQ PO PRN (12:12)
[2021-05-18] MEDS ORDERED: Melatonin 3 MG TABLET PO PRN (12:12)
[2021-05-18] MEDS ORDERED: Ondansetron ODT 4 MG TAB.RAPDIS SL PRN (12:12)
[2021-05-18] MEDS ORDERED: D5% in Water 1,000 ML IVC PRN (12:25)
[2021-05-18] MEDS ORDERED: *HR* Dextrose 50 % in Water (Syg) 50 ML SYRINGE IVP PRN (12:25)
[2021-05-18] MEDS ORDERED: Dextrose Gel 15 GM/37.5 ML TUBE PO PRN ×2 (12:25)
[2021-05-18] MEDS ORDERED: cloNIDine HCL 0.1 MG TABLET PO SCH (15:00)
[2021-05-18] MEDS ORDERED: *HR* Heparin 5,000 UNIT/ML VIAL IVP ONE (15:02)
[2021-05-18] MEDS ORDERED: *HR* Heparin 5,000 UNIT/ML VIAL IVP PRN ×2 (15:02)
[2021-05-18] MEDS: Ipratropium/Albuterol Neb 3 ML IH SCH ×2 (15:14→20:04)
[2021-05-18] MEDS ORDERED: Heparin 25,000UNIT/250ML 1/2NS 25,000 UNIT/250 ML IV.SOLN IVC SCH (15:15)
[2021-05-18] MEDS ORDERED: Isosorbide MONOnitrate (24 HR) 30 MG TAB.ER.24H PO SCH (15:39)
[2021-05-18] MEDS ORDERED: Nitroglycerin 0.4 MG TAB.SUBL SL PRN (15:40)
[2021-05-18] MEDS ORDERED: Aspirin 81 MG TAB.CHEW PO SCH (15:45)
[2021-05-18] MEDS: *HR* LORazepam 0.5 MG TABLET PO PRN ×2 (15:57→20:24)
[2021-05-18] MEDS ORDERED: Insulin LISPRO 300 UNITS/3 ML VIAL SUBQ SCH ×2 (16:30→21:00)
[2021-05-18 16:48] LABS: Hematocrit 44.1 % (35.3-44.9); Hemoglobin 13.9 g/dL (11.5-15.4); Mean Corpuscular HGB Conc 31.5 g/dL (31.6-35.5); Mean Corpuscular Hemoglobin 28.4 pg (28.0-33.3); Mean Corpuscular Volume 90.2 fL (83.0-100.0); Mean Platelet Volume 10.7 fL (9.4-12.4); Platelet Count 191 K/mcL (140-400); Red Blood Count 4.89 M/mcL (3.82-4.97); Red Cell Distribution Width 14.9 % (11.5-14.5); White Blood Count 7.1 K/mcL (4.3-11.1)
[2021-05-18 17:01] LABS: INR 1.1; Prothrombin Time 12.4 Seconds (9.4-12.1)
[2021-05-18 17:14] LABS: Heparin anti-factor XA UFH 1.1 IU/mL (0.30-0.70)
[2021-05-18] MEDS ORDERED: MethylPREDNISolone 40 MG/ML VIAL IVP SCH (18:00)
[2021-05-18 20:06] VITALS: RESP 20; O2SAT 93
[2021-05-18] MEDS ORDERED: Mirtazapine 15 MG TABLET PO SCH (21:00)
[2021-05-18 21:08] VITALS: BP 147/81; PULSE 92; TEMP 97.8
[2021-05-18] MEDS ORDERED: *HR* OxyCODONE/APAP 5/325 TABLET PO PRN (21:08)
[2021-05-19] MEDS ORDERED: *HR* Enoxaparin 40 MG/0.4 ML SYRINGE SQ SCH (06:00)
[2021-05-19] MEDS ORDERED: Aspirin 81 MG TAB.CHEW PO SCH (09:00)
[2021-05-19] MEDS ORDERED: Furosemide 20 MG TABLET PO SCH (09:00)
[2021-05-19] MEDS ORDERED: cefTRIAXone 1,000 MG in Water for inj. (sterile) 10 ML IVP SCH (09:00)
[2021-05-19] MEDS ORDERED: Loratadine 10 MG TABLET PO SCH (09:00)
[2021-05-19] MEDS ORDERED: Isosorbide MONOnitrate (24 HR) 30 MG TAB.ER.24H PO SCH (09:00)
[2021-05-19] MEDS ORDERED: Azithromycin 500 MG in 0.9 % Sodium Chloride 250 ML IVPB SCH (10:00)
== END 2021-05-18 22:20 | disposition short-term general hospital (02) ==
LOC: INPGRE 05:44 → EMEROOGRE 05:44 → INPGRE 09:48
PROVIDERS: ADMIT Family Medicine; ATTEND Family Medicine